=== PATIENT | female | born 1940 | race Caucasian/White ===

== ENCOUNTER → 2018-12-24 12:52 | Outpatient (CLI) | payer MEDICARE, OTHER, SELFPAY ==
[2018-12-24 13:39] LABS: Basophils % 0.4 % (0.1-2.0); Eosinophils # 0.1 K/mm3 (0.0-0.4); Eosinophils % 3.5 % (0.1-12.0); Hematocrit 37.3 % (37.0-47.0); Hemoglobin 11.9 g/dL (12.2-16.2); Lymphocytes # 0.9 K/mm3 (0.7-4.5); Lymphocytes % 22.3 % (10-50); Mean Corpuscular HGB Conc 31.9 g/dL (31.8-35.4); Mean Corpuscular Hemoglobin 34.4 pg (27.0-31.2); Mean Corpuscular Volume 107.8 fl (81-99); Mean Platelet Volume 7.3 fl (7.4-10.4); Monocytes # 0.3 K/mm3 (0.1-1.0); Monocytes % 6.4 % (1.7-9.3); Neutrophils # 2.8 K/mm3 (1.8-7.8); Neutrophils % 67.5 % (37.0-80.0); Platelet Count 157 K/mm3 (142-424); Red Blood Count 3.46 M/mm3 (4.20-5.40); Red Cell Distribution Width 15.9 % (11.5-17.5); White Blood Count 4.1 K/mm3 (4.8-10.8)
[2018-12-24 15:12] LABS: Erythrocyte Sedimentation Rate 62 mm/hr (0-30)
[2018-12-24 20:25] LABS: C-Reactive Protein 0.4 mg/L (0.0-0.9)
== END ==
PROVIDERS: Visit Provider Orthopaedic Surgery
DX: M25.552 Pain in left hip (principal)
CPT/HCPCS: 36415; 85025; 85651; 86140

== ENCOUNTER → 2019-03-25 14:24 | Outpatient (CLI) | payer MEDICARE, OTHER, SELFPAY ==
[2019-03-25 15:03] LABS: INR 5.88 (0.9-1.1); Prothrombin Time 56.2 seconds (9.4-11.8)
== END ==
PROVIDERS: Visit Provider Internal Medicine Adolescent Medicine
DX: Z51.81 Encounter for therapeutic drug level monitoring (principal); Z79.01 Long term (current) use of anticoagulants
CPT/HCPCS: 85610

== ENCOUNTER → 2019-05-13 11:17 | Outpatient (CLI) | payer MEDICARE, OTHER, SELFPAY ==
[2019-05-13 13:55] LABS: Basophils % 0.4 % (0.1-2.0); Hematocrit 40.3 % (37.0-47.0); Hemoglobin 11.6 g/dL (12.2-16.2); Lymphocytes % 22.9 % (10-50); Mean Corpuscular HGB Conc 28.9 g/dL (31.8-35.4); Mean Corpuscular Hemoglobin 31.2 pg (27.0-31.2); Mean Corpuscular Volume 107.9 fl (81-99); Mean Platelet Volume 8.1 fl (7.4-10.4); Monocytes # 0.3 K/mm3 (0.1-1.0); Monocytes % 7.3 % (1.7-9.3); Neutrophils # 2.9 K/mm3 (1.8-7.8); Neutrophils % 68.4 % (37.0-80.0); Platelet Count 237 K/mm3 (142-424); Red Blood Count 3.73 M/mm3 (4.20-5.40); Red Cell Distribution Width 18.3 % (11.5-17.5); White Blood Count 4.2 K/mm3 (4.8-10.8)
[2019-05-13 15:21] LABS: INR 1.16 (0.9-1.1)
[2019-05-13 18:25] LABS: Hemoglobin A1C 5.1 % (0.0-7.0)
== END ==
PROVIDERS: Internal Medicine Adolescent Medicine; PCP Nurse Practitioner Family; Visit Provider Nurse Practitioner Family
DX: Z51.81 Encounter for therapeutic drug level monitoring (principal); Z79.01 Long term (current) use of anticoagulants; R73.9 Hyperglycemia, unspecified
CPT/HCPCS: 36415; 83036; 85025; 85610

== ENCOUNTER → 2019-06-01 10:57 | Outpatient (CLI) | payer MEDICARE, OTHER, SELFPAY ==
[2019-06-01 14:31] LABS: Prothrombin Time 14.3 seconds (9.4-11.8)
== END ==
PROVIDERS: PCP Nurse Practitioner Family; Visit Provider Nurse Practitioner Family
DX: Z51.81 Encounter for therapeutic drug level monitoring (principal); Z79.01 Long term (current) use of anticoagulants
CPT/HCPCS: 85610

== ENCOUNTER → 2019-06-17 11:09 | Outpatient (CLI) | payer MEDICARE, OTHER, SELFPAY ==
[2019-06-17 14:14] LABS: INR 2.53 (0.9-1.1); Prothrombin Time 25.2 seconds (9.4-11.8)
== END ==
PROVIDERS: Visit Provider Internal Medicine Adolescent Medicine
DX: Z51.81 Encounter for therapeutic drug level monitoring (principal); Z79.01 Long term (current) use of anticoagulants
CPT/HCPCS: 36415; 85610

== ENCOUNTER → 2019-07-22 09:22 | Outpatient (CLI) | payer MEDICARE, OTHER, SELFPAY ==
[2019-07-22 13:58] LABS: INR 4.71 (0.9-1.1); Prothrombin Time 45.5 seconds (9.4-11.8)
== END ==
PROVIDERS: PCP Internal Medicine Adolescent Medicine; Visit Provider Internal Medicine Adolescent Medicine
DX: Z51.81 Encounter for therapeutic drug level monitoring (principal); Z79.01 Long term (current) use of anticoagulants
CPT/HCPCS: 36415; 85610

== ENCOUNTER → 2019-07-27 10:09 | Outpatient (CLI) | payer MEDICARE, OTHER, SELFPAY ==
[2019-07-27 14:38] LABS: INR 1.15 (0.9-1.1); Prothrombin Time 11.9 seconds (9.4-11.8)
== END ==
PROVIDERS: PCP Internal Medicine Adolescent Medicine; Visit Provider Nurse Practitioner Family
DX: Z51.81 Encounter for therapeutic drug level monitoring (principal); Z79.01 Long term (current) use of anticoagulants
CPT/HCPCS: 36415; 85610

== ENCOUNTER → 2019-08-17 10:34 | Outpatient (CLI) | payer MEDICARE, OTHER, SELFPAY ==
[2019-08-17 15:14] LABS: INR 5.43 (0.9-1.1); Prothrombin Time 52.1 seconds (9.4-11.8)
== END ==
PROVIDERS: PCP Internal Medicine Adolescent Medicine; Visit Provider Internal Medicine Adolescent Medicine
DX: Z51.81 Encounter for therapeutic drug level monitoring (principal); Z79.01 Long term (current) use of anticoagulants
CPT/HCPCS: 36415; 85610

== ENCOUNTER → 2019-08-19 10:33 | Outpatient (CLI) | payer MEDICARE, OTHER, SELFPAY ==
[2019-08-19 15:01] LABS: INR 2.54 (0.9-1.1); Prothrombin Time 25.3 seconds (9.4-11.8)
== END ==
PROVIDERS: Visit Provider Internal Medicine Adolescent Medicine
DX: Z51.81 Encounter for therapeutic drug level monitoring (principal); Z79.01 Long term (current) use of anticoagulants
CPT/HCPCS: 36415; 85610

== ENCOUNTER → 2019-09-02 11:26 | Outpatient (CLI) | payer MEDICARE, OTHER, SELFPAY ==
[2019-09-02 14:06] LABS: Eosinophils # 0.1 K/mm3 (0.0-0.4); Lymphocytes % 29.6 % (10-50); Monocytes # 0.1 K/mm3 (0.1-1.0)
[2019-09-02 14:15] LABS: Basophils % 1.2 % (0.1-2.0); Eosinophils % 3.8 % (0.1-12.0); Hematocrit 32.2 % (37.0-47.0); Hemoglobin 9.6 g/dL (12.2-16.2); Lymphocytes # 0.9 K/mm3 (0.7-4.5); Mean Corpuscular HGB Conc 29.7 g/dL (31.8-35.4); Mean Corpuscular Hemoglobin 31.9 pg (27.0-31.2); Mean Corpuscular Volume 107.5 fl (81-99); Mean Platelet Volume 9.8 fl (7.4-10.4); Monocytes % 4.2 % (1.7-9.3); Neutrophils # 1.8 K/mm3 (1.8-7.8); Neutrophils % 61.2 % (37.0-80.0); Platelet Count 112 K/mm3 (142-424); Red Cell Distribution Width 15.6 % (11.5-17.5); White Blood Count 2.9 K/mm3 (4.8-10.8)
[2019-09-02 14:19] LABS: Alanine Aminotransferase 14 U/L (12-78); Albumin Level 2.1 gm/dL (3.4-5.0); Albumin/Globulin Ratio 0.6 (1.1-1.8); Alkaline Phosphatase 91 U/L (46-116); Anion Gap 12.7 mEq/L (5-15); Aspartate Amino Transferase 31 U/L (15-37); Bilirubin,Total 0.6 mg/dL (0.2-1.0); Blood Urea Nitrogen 30 mg/dL (7-18); Calcium 8.1 mg/dL (8.5-10.1); Carbon Dioxide 32 mmol/L (21.0-32.0); Chloride 97 mmol/L (98-107); Estimated Glomerular Filt Rate 9 ml/min (>60); GFR (African American) 10 ML/MIN (>60); Globulin 3.7 gm/dl (1.3-3.2); Glucose 136 mg/dL (74-106); Potassium 3.7 mmoL/L (3.5-5.1); Sodium 138 mmol/L (136-145); Thyroid Stimulating Hormone 1.18 uIU/ml (0.358-3.740); Total Protein,Serum 5.8 gm/dL (6.4-8.2)
[2019-09-02 14:21] LABS: Hemoglobin A1C 5.5 % (0.0-7.0)
[2019-09-02 14:26] LABS: Creatinine,Serum 4.91 mg/dL (0.55-1.02)
== END ==
PROVIDERS: Visit Provider Nurse Practitioner Family
DX: R53.1 Weakness (principal); I10 Essential (primary) hypertension; D64.9 Anemia, unspecified; E03.9 Hypothyroidism, unspecified; E11.9 Type 2 diabetes mellitus without complications
CPT/HCPCS: 36415; 80053; 83036; 84443; 85025

== ENCOUNTER → 2019-10-07 12:57 | Outpatient (CLI) | payer MEDICARE, OTHER, SELFPAY ==
[2019-10-07 13:26] LABS: Basophils % 0.5 % (0.1-2.0); Eosinophils # 0.1 K/mm3 (0.0-0.4); Eosinophils % 2.8 % (0.1-12.0); Hematocrit 38.1 % (37.0-47.0); Hemoglobin 11.4 g/dL (12.2-16.2); Lymphocytes # 0.9 K/mm3 (0.7-4.5); Lymphocytes % 24.9 % (10-50); Mean Corpuscular Hemoglobin 32.9 pg (27.0-31.2); Mean Corpuscular Volume 109.5 fl (81-99); Mean Platelet Volume 8.8 fl (7.4-10.4); Monocytes # 0.2 K/mm3 (0.1-1.0); Monocytes % 5.5 % (1.7-9.3); Neutrophils # 2.3 K/mm3 (1.8-7.8); Neutrophils % 66.3 % (37.0-80.0); Platelet Count 73 K/mm3 (142-424); Red Blood Count 3.48 M/mm3 (4.20-5.40); Red Cell Distribution Width 18.9 % (11.5-17.5); White Blood Count 3.4 K/mm3 (4.8-10.8)
[2019-10-07 13:30] LABS: Chloride 97 mmol/L (98-107); Potassium 4.4 mmoL/L (3.5-5.1); Sodium 138 mmol/L (136-145)
[2019-10-07 13:32] LABS: Activated Partial Thrombo Time 29.7 seconds (23.6-34.0); Alanine Aminotransferase 20 U/L (12-78); Aspartate Amino Transferase 50 U/L (14-36); Blood Urea Nitrogen 33 mg/dl (7-17); Estimated Glomerular Filt Rate 13 ml/min (>60); GFR (African American) 15 ML/MIN (>60); INR 1.06 (0.9-1.1)
[2019-10-07 13:33] LABS: Albumin Level 3.2 g/dl (3.5-5.0); Alkaline Phosphatase 87 U/L (38-126); Anion Gap 10.4 mEq/L (5-15); Bilirubin,Total 0.6 mg/dl (0.2-1.3); Calcium 8.5 mg/dl (8.4-10.2); Carbon Dioxide 35 mmol/L (22.0-30.0); Globulin 3.3 g/dL (1.3-3.2); Glucose 78 mg/dl (74-100); Total Protein,Serum 6.5 g/dl (6.3-8.2)
[2019-10-07 13:49] LABS: C-Reactive Protein 17.6 mg/L (0-4)
[2019-10-07 14:01] LABS: Erythrocyte Sedimentation Rate 91 mm/hr (0-30)
[2019-10-08 10:37] LABS: Toxoplasma gondii Ab,IgG,Qn <3.0 IU/mL (0.0-7.1); Toxoplasma gondii Ab,IgM,Qn 4.3 AU/mL (0.0-7.9)
== END ==
PROVIDERS: Visit Provider Nurse Practitioner Family
DX: D69.2 Other nonthrombocytopenic purpura (principal); W55.03XA Scratched by cat, initial encounter
CPT/HCPCS: 36415; 80053; 85025; 85610; 85651; 85730; 86140; 86777

== ENCOUNTER → 2019-10-12 10:13 | Outpatient (CLI) | payer MEDICARE, OTHER, SELFPAY ==
[2019-10-12 13:30] LABS: Basophils % 0.7 % (0.1-2.0); Eosinophils # 0.1 K/mm3 (0.0-0.4); Eosinophils % 3.9 % (0.1-12.0); Hematocrit 37.8 % (37.0-47.0); Hemoglobin 11.6 g/dL (12.2-16.2); Lymphocytes # 0.7 K/mm3 (0.7-4.5); Lymphocytes % 29.4 % (10-50); Mean Corpuscular HGB Conc 30.7 g/dL (31.8-35.4); Mean Corpuscular Hemoglobin 32.9 pg (27.0-31.2); Mean Corpuscular Volume 107.1 fl (81-99); Mean Platelet Volume 8.6 fl (7.4-10.4); Monocytes # 0.1 K/mm3 (0.1-1.0); Monocytes % 4.8 % (1.7-9.3); Neutrophils # 1.4 K/mm3 (1.8-7.8); Neutrophils % 61.3 % (37.0-80.0); Platelet Count 83 K/mm3 (142-424); Red Blood Count 3.53 M/mm3 (4.20-5.40); Red Cell Distribution Width 17.8 % (11.5-17.5); White Blood Count 2.3 K/mm3 (4.8-10.8)
== END ==
PROVIDERS: Visit Provider Internal Medicine Adolescent Medicine
DX: D69.6 Thrombocytopenia, unspecified (principal)
CPT/HCPCS: 36415; 85025

== ENCOUNTER → 2019-11-08 08:55 | Outpatient (CLI) | payer MEDICARE, OTHER, SELFPAY ==
[2019-11-08 14:25] LABS: Basophils % 0.5 % (0.1-2.0); Eosinophils # 0.1 K/mm3 (0.0-0.4); Eosinophils % 4.3 % (0.1-12.0); Hematocrit 33.4 % (37.0-47.0); Lymphocytes # 0.5 K/mm3 (0.7-4.5); Lymphocytes % 32.6 % (10-50); Mean Corpuscular Hemoglobin 32.1 pg (27.0-31.2); Mean Corpuscular Volume 106.8 fl (81-99); Mean Platelet Volume 9.6 fl (7.4-10.4); Monocytes # 0.1 K/mm3 (0.1-1.0); Monocytes % 5.7 % (1.7-9.3); Neutrophils # 0.9 K/mm3 (1.8-7.8); Platelet Count 118 K/mm3 (142-424); Red Blood Count 3.13 M/mm3 (4.20-5.40); Red Cell Distribution Width 16.7 % (11.5-17.5); White Blood Count 1.6 K/mm3 (4.8-10.8)
[2019-11-08 15:51] LABS: Occult Blood,Stool Negative (Negative)
== END ==
PROVIDERS: Visit Provider Nurse Practitioner Family
DX: K92.1 Melena (principal)
CPT/HCPCS: 82272; 85025; G0328

== ENCOUNTER → 2020-04-11 09:21 | Outpatient (CLI) | payer MEDICARE, OTHER, SELFPAY ==
[2020-04-11 14:38] LABS: Basophils % 0.6 % (0.1-2.0); Eosinophils # 0.1 K/mm3 (0.0-0.4); Eosinophils % 3.4 % (0.1-12.0); Hematocrit 39.2 % (37.0-47.0); Hemoglobin 13.1 g/dL (12.2-16.2); Lymphocytes # 0.8 K/mm3 (0.7-4.5); Lymphocytes % 22.6 % (10-50); Mean Corpuscular HGB Conc 33.3 g/dL (31.8-35.4); Mean Corpuscular Hemoglobin 35.1 pg (27.0-31.2); Mean Corpuscular Volume 105.3 fl (81-99); Mean Platelet Volume 8.9 fl (7.4-10.4); Monocytes # 0.2 K/mm3 (0.1-1.0); Monocytes % 5.4 % (1.7-9.3); Neutrophils # 2.4 K/mm3 (1.8-7.8); Platelet Count 137 K/mm3 (142-424); Red Blood Count 3.72 M/mm3 (4.20-5.40); Red Cell Distribution Width 15.9 % (11.5-17.5); White Blood Count 3.6 K/mm3 (4.8-10.8)
[2020-04-11 14:44] LABS: Alanine Aminotransferase 17 U/L (12-78); Albumin Level 4.1 g/dl (3.5-5.0); Albumin/Globulin Ratio 1.6 (1.1-1.8); Alkaline Phosphatase 127 U/L (38-126); Anion Gap 16.7 mEq/L (5-15); Aspartate Amino Transferase 31 U/L (14-36); Bilirubin,Total 0.6 mg/dl (0.2-1.3); Blood Urea Nitrogen 36 mg/dl (7-17); Calcium 8.8 mg/dl (8.4-10.2); Carbon Dioxide 39 mmol/L (22.0-30.0); Chloride 92 mmol/L (98-107); Estimated Glomerular Filt Rate 10 ml/min (>60); GFR (African American) 12 ML/MIN (>60); Globulin 2.5 g/dL (1.3-3.2); Glucose 95 mg/dl (74-100); Potassium 3.7 mmoL/L (3.5-5.1); Sodium 144 mmol/L (136-145); Total Protein,Serum 6.6 g/dl (6.3-8.2)
[2020-04-11 14:48] LABS: Hemoglobin A1C 5.4 % (4.0-6.0)
[2020-04-11 14:58] LABS: 25-OH Vitamin D, Total 21.6 ng/mL (30-100)
[2020-04-11 15:15] LABS: Thyroid Stimulating Hormone 2.41 uIU/mL (0.465-4.68)
== END ==
PROVIDERS: Visit Provider Nurse Practitioner Family
DX: N18.6 End stage renal disease (principal); D64.9 Anemia, unspecified; E11.9 Type 2 diabetes mellitus without complications; E03.9 Hypothyroidism, unspecified; E55.9 Vitamin D deficiency, unspecified
CPT/HCPCS: 36415; 80053; 82306; 83036; 84443; 85025

== ENCOUNTER → 2020-04-13 09:54 | Outpatient (CLI) | payer MEDICARE, OTHER, SELFPAY ==
--- NOTE | 2020-04-13 | CA_ITS ---
APPROVED REPORT Assistant Director Of Public Works: Concetta Hensley RVT Laterality: Bilateral Study Quality: Good Indications: Bruit Risk Factors Diabetes Doppler Spectral Velocity Analysis ECA (R) 82.10/5.00 cm/s ECA (L) 101.00/6.20 cm/s dICA (R) 97.20/15.60 cm/s dICA (L) 92.70/17.80 cm/s [place] (R) 100.20/19.60 cm/s [place] (L) 69.10/11.60 cm/s pICA (R) 68.50/11.60 cm/s pICA (L) 75.70/15.30 cm/s dCCA (R) 70.70/10.70 cm/s dCCA (L) 85.90/14.00 cm/s pCCA (R) 90.10/9.70 cm/s pCCA (L) 83.40/10.80 cm/s Vert (R) 42.00/5.10 cm/s Vert (L) 52.00/9.30 cm/s ICA/CCA 1.42 ICA/CCA 1.08 Findings Study suggests less than 20% stenosis of the right internal cartoid artery unchanged from the 02/01/13 study. Study suggests less than 20% stenosis of the left internal cartoid artery unchanged from the 02/01/13 study. Antegrade flow seen bilateral vertebral arteries. Conclusion Study suggests less than 20% stenosis of the right internal cartoid artery unchanged from the 02/01/13 study. Study suggests less than 20% stenosis of the left internal cartoid artery unchanged from the 02/01/13 study. Antegrade flow seen bilateral vertebral arteries. Electronically signed by : Wilfrido Barton MD 04/13/2020 17:59:42
--- NOTE | 2020-04-13 10:40 | MM_ITS ---
PROCEDURE: MM DIG SCREENING MAMM BI W/CAD Referring Doctor: Zara Delcid Patient Age:80Y CLINICAL INDICATION: SCREENING routine screening. No hormones, no new complaints family history. Sister with breast cancer COMPARISON: MG DMSB DIGITAL MAMM-SCREEN BILATERAL from 06/19/2012 MG DMSB DIG MAMM-SCREEN ASHLEY from 11/16/2013 MG DMSB DIG MAMM-SCREEN ASHLEY from 02/13/2015 MG DMSB DIG MAMM-SCREEN ASHLEY W/CAD from 04/01/2017 CR,MG BONE3 BONE DENSITOMETRY(HIP:LT SPINE from 04/01/2017 TECHNIQUE: Standard CC and MLO images were obtained. R2 CAD reviewed. Bilateral digital breast tomosynthesis included. Additional nipple profile MLO views bilateral FINDINGS: Low-density breast with diffuse fatty replacement and scant residual fibroglandular elements. Mammography is most optimal screening modality in this low-density character breast . No suspicious calcifications-the the calcifications highlighted by CAD are all benign vascular calcifications and not of concern. Right breast: Stable. Unremarkable. Follow-up 1 year: Left breast: Stable minor focal area of asymmetric fibroglandular tissue upper outer quadrant. Follow-up 1 year IMPRESSION: . Stable bilateral mammogram. No areas of concern. Low-density breast generalized fatty replacement Bilateral follow-up 1 year BI-RAD Category: 1 Negative FOLLOW-UP: 1YR 1 Year Follow-up (A letter has been sent to the patient regarding results of the study.) Dictated by: Yusuf Rangel MD 04/17/2020 11:19 Yusuf Rangel MD in [place] 04/17/2020 11:19
--- NOTE | 2020-04-13 11:26 | XR_ITS ---
PROCEDURE: XR FOOT WT BEARING RT 3V CLINICAL INDICATION: pain COMPARISON: No exams were available for comparison FINDINGS: No fracture or dislocation. No lytic or blastic change. There is normal mineralization. The joint spaces are well-preserved. No significant degenerative/arthritic changes. No erosive changes evident. Other findings:None. IMPRESSION: No acute findings. Dictated by: Wilfrido Barton MD 04/13/2020 13:16 Wilfrido Barton MD in [place] 04/13/2020 13:16
--- NOTE | 2020-04-13 11:26 | XR_ITS ---
PROCEDURE: XR FOOT WT BEARING LT 3V CLINICAL INDICATION: pain COMPARISON: No exams were available for comparison FINDINGS: No fracture or dislocation. No lytic or blastic change. There is normal mineralization. The joint spaces are well-preserved. No significant degenerative/arthritic changes. No erosive changes evident. Other findings:None. IMPRESSION: No acute findings. Dictated by: Wilfrido Barton MD 04/13/2020 13:16 Wilfrido Barton MD in [place] 04/13/2020 13:16
== END ==
PROVIDERS: PCP Nurse Practitioner Family; Visit Provider Nurse Practitioner Family
DX: Z12.31 Encounter for screening mammogram for malignant neoplasm of breast (principal); R09.89 Other specified symptoms and signs involving the circulatory and respiratory systems; E11.9 Type 2 diabetes mellitus without complications; E03.9 Hypothyroidism, unspecified; E55.9 Vitamin D deficiency, unspecified; D64.9 Anemia, unspecified; N18.6 End stage renal disease; M79.672 Pain in left foot; M79.671 Pain in right foot
CPT/HCPCS: 73630; 77063; 77067; 93880

== ENCOUNTER → 2021-06-05 14:16 | Outpatient (POV) | payer MEDICARE, OTHER, SELFPAY | PROVIDERS: Visit Provider Dermatology | DX: Z00.00 Encounter for general adult medical examination without abnormal findings (principal) ==

== ENCOUNTER → 2022-02-26 14:39 | Outpatient (POV) | payer MEDICARE, OTHER, SELFPAY | PROVIDERS: Visit Provider Dermatology | DX: Z00.00 Encounter for general adult medical examination without abnormal findings (principal) ==

== ENCOUNTER → 2022-03-12 14:07 | Outpatient (POV) | payer MEDICARE, OTHER, SELFPAY | PROVIDERS: Visit Provider Dermatology | DX: Z00.00 Encounter for general adult medical examination without abnormal findings (principal) ==

== ENCOUNTER 2022-05-10 08:30 | Emergency (ER) | payer MEDICARE, OTHER, SELFPAY ==
[2022-05-10] VITALS (20 sets, daily range): BP systolic 102–151; BP diastolic 26–64; PULSE 64–96; RESP 16–20; TEMP 36.7–36.9; O2SAT 91–100; BMI 22.9
--- NOTE | 2022-05-10 09:09 | CT_ITS ---
FINAL REPORT TECHNIQUE: Axial images through the abdomen and pelvis were performed without contrast. This study was performed with techniques to keep radiation doses as low as reasonably achievable, (ALARA). Individualized dose reduction techniques using automated exposure control or adjustment of mA and/or kV according to the patient's size were employed. CLINICAL HISTORY: abd. pain, vomiting FINDINGS: Abdomen: The lung bases are clear. The liver parenchyma is homogeneous. There is evidence of cholecystectomy. The common duct is markedly dilated at 28 mm. A large duodenal diverticulum is seen on image 50 of series 3. There are calcified granulomas in the spleen. The pancreas, adrenals and kidneys are unremarkable. There are multiple fluid filled abnormally dilated loops of proximal small bowel. Dilated bowel measures up to 4.3 cm. A left abdomen colostomy is present. The colon is relatively decompressed. Pelvis: The urinary bladder is unremarkable. The appendix is not visualized. There is no pelvic mass or inflammation. Bilateral hip prostheses cause streak artifact. IMPRESSION: Abnormally dilated loops of small bowel consistent with small-bowel obstruction. Dilated common duct up to 28 mm. Reviewed, Interpreted and Dictated by Aiden Lira MD Transcribed by Eric Yin Authenticated and [facility]
[2022-05-10 09:16] LABS: Basophils # 0.1 K/mm3 (0-0.2); Basophils % 0.6 % (0.1-2.0); Eosinophils # 0.1 K/mm3 (0.0-0.4); Eosinophils % 0.8 % (0.1-12.0); Hematocrit 43.8 % (37.0-47.0); Hemoglobin 13.7 g/dL (12.2-16.2); Lymphocytes # 0.9 K/mm3 (0.7-4.5); Lymphocytes % 10.9 % (10-50); Mean Corpuscular HGB Conc 31.2 g/dL (31.8-35.4); Mean Corpuscular Hemoglobin 34.1 pg (27.0-31.2); Mean Corpuscular Volume 109.1 fl (81-99); Mean Platelet Volume 8.1 fl (7.4-10.4); Monocytes # 0.4 K/mm3 (0.1-1.0); Monocytes % 4.1 % (1.7-9.3); Neutrophils # 7.2 K/mm3 (1.8-7.8); Neutrophils % 83.7 % (37.0-80.0); Platelet Count 198 K/mm3 (142-424); Red Blood Count 4.02 M/mm3 (4.20-5.40); Red Cell Distribution Width 15.2 % (11.5-17.5); White Blood Count 8.6 K/mm3 (4.8-10.8)
--- NOTE | 2022-05-10 09:16 | HMH.EDNVD ---
Discharge Plan Disposition Patient Disposition: Xfer Intermediate Care Fac Condition: Fair Chief Complaint: Nausea/Vomiting/Diarrhea Prescriptions Prescriptions: No Action timolol maleate 0.5 % drops OPHTHALMIC latanoprost 0.005 % drops OPHTHALMIC ascorbic acid (vitamin C) 500 mg capsule PO Nephro-Antonella 0.8 mg tablet 1 tab PO DAILY calcium acetate 667 mg tablet 1,334 mg PO TID midodrine 10 mg tablet 10 mg PO BID Rx Instructions: One tab bid on dialysis days acetaminophen 325 mg capsule 325 mg PO QID PRN (Reason: pain) pregabalin 75 mg capsule 75 mg PO DAILY Qty: 30 3RF pregabalin 25 mg capsule 25 mg PO DAILY Qty: 90 3RF Rx Instructions: One tab daily on MWF (dialysis days) trazodone 50 mg tablet 50 mg PO DAILY Qty: 30 3RF pantoprazole 40 mg tablet,delayed release (DR/EC) 40 mg PO DAILY Qty: 30 3RF hydrocodone-acetaminophen 5-325 mg tablet 1 tab PO QHS PRN (Reason: neuropathy pain) Qty: 30 0RF cephalexin 500 mg capsule 500 mg PO BID Qty: 20 0RF Rx Instructions: take first daily dose AFTER DIALYSIS on Friday, Friday, and Friday levothyroxine [Synthroid] 88 mcg tablet 88 mcg PO DAILY Qty: 30 3RF Referrals Follow up/Referrals: Saw Roa MD [Primary Care Provider] - See instructions Clinical Impressions Clinical Impression: End-stage renal disease on hemodialysis, Complete small bowel obstruction Discharge ED Provider: Jacob Ramos Nausea/Vomiting/Diarrhea HPI General Chief complaint: Nausea/Vomiting/Diarrhea Stated complaint: Vomitting, stomach pain Time Seen by Provider: 05/10/22 09:16 Mode of Arrival: Ambulatory Source of Information: Patient Limitations: No Limitations Description of Symptoms (Recalled from ER Triage Doc. by RN): c/o v/d with sharp abdominal pain that started yesterday. History of Present Illness HPI Narrative: This is a 82-year-old female presenting to the emergency department with some nausea vomiting and abdominal discomfort. The patient has a history of a colostomy. She states that she woke up this morning was feeling very nauseous. She has had some dry heaves and yellow vomiting. Patient complaining of some mild pain around her colostomy site. States that her colostomy has been draining fine without any complications. She denies any headache or change in vision. No focal weakness. No fevers or chills. No chest pain or shortness of breath. Related Data Home Medications Medication Instructions Recorded Confirmed ascorbic acid (vitamin C) 500 mg mg PO 10/14/19 03/05/22 capsule vitamin B complex-vitamin C-folic 1 tab PO DAILY 10/14/19 03/05/22 acid 0.8 mg tablet (Nephro-Antonella) calcium acetate 667 mg tablet 1,334 mg PO TID 04/18/20 03/05/22 latanoprost 0.005 % eye drops ophthalmic (eye) 04/18/20 03/05/22 timolol maleate 0.5 % eye drops ophthalmic (eye) 04/18/20 03/05/22 acetaminophen 325 mg capsule 325 mg PO QID PRN pain 02/26/22 03/05/22 midodrine 10 mg tablet 10 mg PO BID 02/26/22 03/05/22 Previous Rx's Medication Instructions Recorded cephalexin 500 mg capsule 500 mg PO BID #20 caps 03/05/22 hydrocodone 5 mg-acetaminophen 325 1 tab PO QHS PRN neuropathy pain 04/01/22 mg tablet #30 tabs pantoprazole 40 mg tablet,delayed 40 mg PO DAILY #30 tabs 04/01/22 release pregabalin 25 mg capsule 25 mg PO DAILY #90 caps 04/01/22 pregabalin 75 mg capsule 75 mg PO DAILY #30 caps 04/01/22 trazodone 50 mg tablet 50 mg PO DAILY pain #30 tabs 04/01/22 levothyroxine 88 mcg tablet 88 mcg PO DAILY #30 tabs 04/26/22 (Synthroid) Allergies Allergy/AdvReac Type Severity Reaction Status Date / Time tramadol [TRAMADOL] Allergy Mild Verified 03/05/22 11:17 OTHER Allergy Unknown Uncoded 03/05/22 11:17 [facility] Medical History (Updated 05/10/22 @ 18:30 by Jacob Ramos MD) Chronic kidney disease Diabetes mellitus, type 2 Dialysis patient
[2022-05-10 09:19] LABS: Chloride 92 mmol/L (98-107); Sodium 145 mmol/L (136-145)
--- NOTE | 2022-05-10 09:19 | PC.NURSE ---
Pt to RAD for CT SCAN via WC
[2022-05-10 09:22] LABS: Alanine Aminotransferase 16 U/L (12-78); Alkaline Phosphatase 169 U/L (38-126); Amylase 144 U/L (30-110); Aspartate Amino Transferase 34 U/L (14-36); Bilirubin,Total 0.4 mg/dl (0.2-1.3); Blood Urea Nitrogen 33 mg/dl (7-17); Calcium 8.6 mg/dl (8.4-10.2); Carbon Dioxide 35 mmol/L (22.0-30.0); Creatinine Clearance Estimated 7 mL/min (50-200); Estimated Glomerular Filt Rate 7 ml/min (>60); GFR (African American) 9 ML/MIN (>60); Glucose 124 mg/dl (74-100); Lipase 45 U/L (23-300)
[2022-05-10 09:23] LABS: Albumin Level 4.2 g/dl (3.5-5.0); Albumin/Globulin Ratio 1.6 (1.1-1.8); Globulin 2.7 g/dL (1.3-3.2); Total Protein,Serum 6.9 g/dl (6.3-8.2)
--- NOTE | 2022-05-10 09:26 | PC.NURSE ---
Pt BAck to room via WC from RAD
--- NOTE | 2022-05-10 09:28 | PC.NURSE ---
pt given blanket per radio division officer
--- NOTE | 2022-05-10 09:28 | PC.NURSE ---
sorter/assay tech gave pt warm blanket
--- NOTE | 2022-05-10 11:18 | PC.NURSE ---
pt and so updated on plan of care
--- NOTE | 2022-05-10 11:20 | PC.NURSE ---
LUZMARIA RODRIGUEZ ON PHONE WITH [facility]
--- NOTE | 2022-05-10 11:20 | PC.NURSE ---
Dr Ramos speaking with Dr Toro
--- NOTE | 2022-05-10 11:38 | PC.NURSE ---
[facility] called for pt transfer, they are to call back.
--- NOTE | 2022-05-10 11:51 | PC.NURSE ---
rounded on pt, updated on poc, family at [facility]
--- NOTE | 2022-05-10 11:54 | PC.NURSE ---
Dr Ramos speaking with Dr Peace at [facility]
[2022-05-10 12:04] LABS: Coronavirus 19, PCR Not Detected (NotDetected); Influenza A, PCR Not Detected (NotDetected); Influenza B, PCR Not Detected (NotDetected)
--- NOTE | 2022-05-10 12:05 | PC.NURSE ---
[facility] called for transfer, waiting for hospitalist Dr Ramirez to call back.
--- NOTE | 2022-05-10 12:17 | PC.NURSE ---
Dr Ramirez returned call, they are working on a bed for pt.
--- NOTE | 2022-05-10 12:24 | PC.NURSE ---
RN ATtempting to place NG tube
--- NOTE | 2022-05-10 12:28 | XR_ITS ---
FINAL REPORT CLINICAL HISTORY: ng placement COMPARISON: May of 2017 FINDINGS: An NG tube terminates in the stomach. The heart size is normal. The mediastinum is normal. There is no focal infiltrate or edema. There are no pleural effusions. There is no pneumothorax. There is no osseous abnormality. IMPRESSION: No acute cardiopulmonary process NG tube terminates in the stomach. Reviewed, Interpreted and Dictated by Aiden Lira MD Transcribed by Eric Yin Authenticated and [facility]
--- NOTE | 2022-05-10 12:29 | PC.NURSE ---
Dr Ramos on with Dr Small at [facility]
--- NOTE | 2022-05-10 12:31 | PC.NURSE ---
called radiology to get confirmation of ng tube placement
--- NOTE | 2022-05-10 12:31 | PC.NURSE ---
spoke with [facility]
--- NOTE | 2022-05-10 12:34 | PC.NURSE ---
RAD @ [facility] for after ng placement flim
--- NOTE | 2022-05-10 12:35 | PC.NURSE ---
Facesheet faxed to [facility]
--- NOTE | 2022-05-10 13:12 | PC.NURSE ---
Mishel with customer relations checked on pt she was resting.
--- NOTE | 2022-05-10 14:06 | PC.NURSE ---
Dr Ibarra here and spoke with the pt
--- NOTE | 2022-05-10 14:25 | PC.NURSE ---
pt updated on plan of care
--- NOTE | 2022-05-10 18:44 | PC.NURSE ---
[facility] called pt is still on waiting list
--- NOTE | 2022-05-10 20:20 | PC.NURSE ---
[facility] call patient is going to [facility], room number will be given at registration. Report to be called to [phone]. message given to VINCENT Naranjo
--- NOTE | 2022-05-10 20:33 | PC.NURSE ---
PT AWARE OF PLAN TO TRANSFER TO [facility] AND AWARE THAT BED HAS BEEN ASSIGNED. [facility] AND RECEIVE BED ASSIGNMENT UPON ARRIVAL.
--- NOTE | 2022-05-10 20:50 | PC.NURSE ---
[facility] notified of need for transfer
--- NOTE | 2022-05-10 21:07 | PC.NURSE ---
[facility] arrived for pt transport to [place]
== END 2022-05-10 21:20 ==
PROVIDERS: Emergency Provider Emergency Medicine; PCP Family Medicine
DX: N18.6 End stage renal disease (principal); K56.691 Other complete intestinal obstruction; Z99.2 Dependence on renal dialysis; E11.9 Type 2 diabetes mellitus without complications; E03.9 Hypothyroidism, unspecified
CPT/HCPCS: 71045; 74176; 80053; 82150; 83690; 85025; 96365; 96375; 96376; 99285; C9803; J2405; U0003; U0005

== ENCOUNTER → 2022-06-18 06:01 | Outpatient (CLI) | payer MEDICARE, OTHER, SELFPAY | PROVIDERS: PCP Family Medicine; Visit Provider Family Medicine | DX: R05.9 Cough, unspecified (principal); U07.1 COVID-19 | CPT/HCPCS: C9803; U0003; U0005 ==

== ENCOUNTER → 2022-11-12 14:27 | Outpatient (CLI) | payer MEDICARE, OTHER, SELFPAY ==
--- NOTE | 2022-11-12 14:35 | XR_ITS ---
FINAL REPORT CLINICAL HISTORY: ulcer COMPARISON: March 2020 FINDINGS: 3 views of the right foot were obtained. There are fractures of the distal 2nd and 3rd metatarsals that appears subacute but are new from the prior exam. There is no dislocation. The soft tissues are unremarkable. IMPRESSION: Subacute appearing fractures of the distal 2nd and 3rd metatarsals are new as compared to the prior exam. Reviewed, Interpreted and Dictated by Martha Calderon MD Transcribed by Eric Yni Authenticated and [facility]
--- NOTE | 2022-11-12 14:35 | XR_ITS ---
FINAL REPORT CLINICAL HISTORY: ulcer COMPARISON: March 2020 FINDINGS: 3 views of the right foot were obtained. The bones are osteopenic. There is no acute fracture or dislocation. The joint spaces are intact. The soft tissues are unremarkable. IMPRESSION: No acute osseous abnormality. Reviewed, Interpreted and Dictated by Martha Calderon MD Transcribed by Eric Yin Authenticated and [facility]
== END ==
PROVIDERS: PCP Family Medicine; Visit Provider Nurse Practitioner Family
DX: E11.621 Type 2 diabetes mellitus with foot ulcer (principal); S91.301A Unspecified open wound, right foot, initial encounter; S91.302A Unspecified open wound, left foot, initial encounter; B96.89 Other specified bacterial agents as the cause of diseases classified elsewhere
CPT/HCPCS: 73630; 87070; 87077; 87205

== ENCOUNTER → 2022-11-19 14:33 | Outpatient (CLI) | payer MEDICARE, OTHER, SELFPAY ==
--- NOTE | 2022-11-19 14:35 | US_ITS ---
FINAL REPORT CLINICAL HISTORY: decreased sensation, DM, Left great toe injury FINDINGS: ANKLE-BRACHIAL PRESSURE INDICES Pressure indices are as follows: RIGHT LOWER EXTREMITY: Ankle-brachial pressure index: 1.1 Comments: Normal LEFT LOWER EXTREMITY: Ankle-brachial pressure index: 1.0 Comments: Normal CONCLUSION: No evidence of significant obstructive peripheral vascular disease of the lower extremities Reviewed, Interpreted and Dictated by Aiden Lira MD Transcribed by Zenia Watson Authenticated and [facility]
== END ==
PROVIDERS: PCP Family Medicine; Visit Provider Nurse Practitioner Family
DX: G57.90 Unspecified mononeuropathy of unspecified lower limb (principal); R09.89 Other specified symptoms and signs involving the circulatory and respiratory systems; R60.0 Localized edema
CPT/HCPCS: 93923

== ENCOUNTER → 2022-12-17 09:46 | Outpatient (CLI) | payer MEDICARE, OTHER, SELFPAY ==
--- NOTE | 2022-12-17 09:46 | MM_ITS ---
PROCEDURE INFORMATION: Exam: MG Bilateral Screening 3D Mammography Exam date and time: 12/17/2022 9:45 AM Age: 82 years old Clinical indication: Screening examination TECHNIQUE: Imaging protocol: Bilateral Screening tomosynthesis and 2D mammography including computer-aided detection (CAD) when performed. COMPARISON: 1. MG MM DIG SCREENING MAMM BI W/CAD 04/13/2020 10:41 AM 2. MG DMSB DIG MAMM-SCREEN ASHLEY W/CAD 04/01/2017 3:36 PM FINDINGS: MAMMOGRAPHY: Breast composition: There are scattered areas of fibroglandular density. Mass: None. Architectural distortion: None. Calcifications: No suspicious calcifications. Asymmetric density: None. Skin thickening: None. Axillary adenopathy: None. IMPRESSION: No mammographic evidence of malignancy. Annual screening is recommended unless otherwise clinically indicated. ASSESSMENT: BI-RADS Category 1: Negative
--- NOTE | 2022-12-17 11:42 | XR_ITS ---
FINAL REPORT TECHNIQUE: Chest PA & Lateral CLINICAL HISTORY: Acute cough FINDINGS: 2 views of the chest were performed. The heart size is normal. The mediastinum is within normal limits. There is no acute cardiopulmonary process. There are no pleural effusions. There is no pneumothorax. The bony thorax appears intact. IMPRESSION: No acute cardiopulmonary process. Reviewed, Interpreted and Dictated by Aiden Lira MD Transcribed by Sandra Mtz Authenticated and . [facility]
== END ==
PROVIDERS: PCP Family Medicine; Visit Provider Family Medicine
DX: Z12.31 Encounter for screening mammogram for malignant neoplasm of breast (principal); E13.621 Other specified diabetes mellitus with foot ulcer; L97.529 Non-pressure chronic ulcer of other part of left foot with unspecified severity; N18.6 End stage renal disease; N18.9 Chronic kidney disease, unspecified; R01.1 Cardiac murmur, unspecified; R05.9 Cough, unspecified; R94.31 Abnormal electrocardiogram [ECG] [EKG]
CPT/HCPCS: 71046; 77063; 77067

== ENCOUNTER → 2023-02-06 10:47 | Outpatient (CLI) | payer MEDICARE, OTHER, SELFPAY | PROVIDERS: PCP Family Medicine; Visit Provider Nurse Practitioner | DX: E13.621 Other specified diabetes mellitus with foot ulcer (principal); L97.529 Non-pressure chronic ulcer of other part of left foot with unspecified severity; N18.6 End stage renal disease; N18.9 Chronic kidney disease, unspecified; R01.1 Cardiac murmur, unspecified; R05.9 Cough, unspecified; R94.31 Abnormal electrocardiogram [ECG] [EKG] | CPT/HCPCS: 93306 ==

== ENCOUNTER → 2023-07-03 14:57 | Outpatient (CLI) | payer MEDICARE, OTHER, SELFPAY ==
--- NOTE | 2023-07-03 15:00 | XR_ITS ---
FINAL REPORT CLINICAL HISTORY: Right great toe/ R/O Osteo COMPARISON: 04/13/2020 FINDINGS: RIGHT FOOT 3 views of the right foot were obtained. There is no acute fracture or dislocation. Mild osteopenia is present. No evidence of erosions or periosteal reaction are noted in the great toe. Visualized joint spaces are normally aligned. Soft tissues are unremarkable. IMPRESSION: Mild osteopenia, no acute bony abnormality. Reviewed, Interpreted and Dictated by Aiden Lira MD Transcribed by Susan Saeed Authenticated and [facility]
== END ==
PROVIDERS: PCP Family Medicine; Visit Provider Nurse Practitioner Family
DX: S91.109A Unspecified open wound of unspecified toe(s) without damage to nail, initial encounter (principal)
CPT/HCPCS: 73630

== ENCOUNTER 2023-09-27 11:17 | Emergency (ER) | payer MEDICARE, OTHER, SELFPAY ==
[2023-09-27 12:10] VITALS: BP 129/48; PULSE 82; RESP 22; TEMP 37.2; O2SAT 91; BMI 23.8
--- NOTE | 2023-09-27 12:12 | ED_ITS ---
Discharge Plan Disposition Patient Disposition: Home, Self-Care Condition: Good Prescriptions Prescriptions: New prednisone 10 mg tablet 10 mg PO DIRECTED 9 Days Qty: 21 0RF Rx Instructions: Take 4 tablets daily for 3 days, then take 2 tablets daily for 3 days, then take 1 tablet daily for 3 days, then stop. azithromycin [Zithromax] 250 mg tablet 250 mg PO UD DOSE PK Qty: 6 0RF Rx Instructions: Take two (2) tablets today, then one (1) tablet days #2 thru #5 guaifenesin [Mucinex] 600 mg tablet extended release 12hr 600 - 1,200 mg PO BIDP PRN (Reason: Congestion) Qty: 30 0RF No Action latanoprost 0.005 % drops OPHTHALMIC timolol maleate 0.25 % drops 1 drp Eye-Both calcitriol 0.25 mcg capsule 0.25 mcg PO DAILY ascorbic acid (vitamin C) 500 mg capsule PO calcium acetate 667 mg tablet 1,334 mg PO TID acetaminophen 325 mg capsule 325 mg PO QID PRN (Reason: pain) midodrine 10 mg tablet 10 mg PO DAILY (DME) True Metrix Glucose Test Strip Strip See Rx Instructions .ROUTE .MEDSUPPLY Qty: 10 Rx Instructions: As directed Marie-Antonella Rx 1-60-300 mg-mg-mcg tablet 1 tab PO DAILY aspirin 81 mg tablet,delayed release (DR/EC) 81 mg PO DAILY PRN amoxicillin-pot clavulanate [Augmentin] 500-125 mg tablet 1 tab PO BID Qty: 14 0RF citalopram [Celexa] 20 mg tablet 20 mg PO DAILY Qty: 30 3RF pantoprazole 40 mg tablet,delayed release (DR/EC) See Rx Instructions .ROUTE .COMPLEX Qty: 30 2RF Dose Instruction: TAKE 1 TABLET BY MOUTH DAILY Rx Instructions: TAKE 1 TABLET BY MOUTH DAILY hydrocodone-acetaminophen 5-325 mg tablet 1 - 2 tab PO HS Qty: 60 0RF levothyroxine [Synthroid] 88 mcg tablet 88 mcg PO DAILY Qty: 30 3RF pregabalin 75 mg capsule 75 mg PO DAILY Qty: 30 3RF pregabalin 25 mg capsule 25 mg PO DAILY Qty: 90 3RF Rx Instructions: One tab daily on MWF (dialysis days) Referrals Follow up/Referrals: Saw Roa MD [Primary Care Provider] - See instructions Activity Restrictions/Add. Instructions Additional Instructions/Restrictions: Take tylenol for pain or fever. Take the medications as directed. Follow up with your regular doctor. Follow up with your kidney doctor. GO TO THE ER FOR ANY WORSENING SYMPTOMS Don't start the oral steroids (prednisone) until tomorrow, since you had the shot here today Clinical Impressions Clinical Impression: COPD exacerbation, ESRD (end stage renal disease) Instructions Patient Instructions: Chronic Obstructive Pulmonary Disease, DI for Chronic Obstructive Pulmonary Disease, Ceftriaxone Injection, Methylprednisolone Injection Discharge ED Provider: John [place] [facility] [place] General Stated complaint: cough soa congestion Time Seen by Provider: 09/27/23 12:12 History of Present Illness Provider Complaint: She states that for the past 10 days approx, she has had worsening chest congestion, sinus congestion, productive cough with greenish sputum and she has felt bad. She has a history of copd. Related Data Home Medications Medication Instructions Recorded Confirmed ascorbic acid (vitamin C) 500 mg mg PO 10/14/19 07/31/23 capsule calcium acetate 667 mg tablet 1,334 mg PO TID 04/18/20 07/31/23 latanoprost 0.005 % eye drops ophthalmic (eye) 04/18/20 07/31/23 acetaminophen 325 mg capsule 325 mg PO QID PRN pain 02/26/22 07/31/23 blood sugar diagnostic (True #10 ea 05/28/22 07/31/23 Metrix Glucose Test Strip) midodrine 10 mg tablet 10 mg PO DAILY 08/27/22 07/31/23 timolol maleate 0.25 % eye drops 1 drp Eye-Both 11/28/22 07/31/23 vitamin B comp no.3-folic acid 1 1 tab PO DAILY 03/13/23 07/31/23 mg-vit C 60 mg-biotin 300 mcg tablet (Marie-Antonella Rx) calcitriol 0.25 mcg capsule 0.25 mcg PO DAILY 05/08/23 07/31/23 aspirin 81 mg tablet,delayed 81 mg PO DAILY PRN 07/01/23 07/31/23 release Previous Rx's Medication Instructions Recorded amoxicillin 500 mg-potassium 1 tab PO BID #14 tabs 07/07/23 clavulanate 125 mg tablet (Augmentin) citalopram 20 mg tablet (Celexa) 20 mg PO DAILY #30 tabs 07/17/23 pantoprazole 40 mg tablet,delayed See Rx Instructions .Route 08/06/23 release .COMPLEX #30 tabs hydrocodone 5 mg-acetaminophen 325 1 - 2 tab PO HS pain #60 tabs 09/08/23 mg tablet levothyroxine 88 mcg tablet 88 mcg PO DAILY #30 tabs 09/08/23 (Synthroid) pregabalin 25 mg capsule 25 mg PO DAILY #90 caps 09/08/23 pregabalin 75 mg capsule 75 mg PO DAILY #30 caps 09/08/23 azithromycin 250 mg tablet 250 mg PO UD DOSE PK #6 tabs 09/27/23 (Zithromax) guaifenesin 600 mg tablet, 600 - 1,200 mg PO BIDP PRN 09/27/23 extended release 12 hr (Mucinex) Congestion #30 tabs prednisone 10 mg tablet 10 mg PO DIRECTED 9 days #21 09/27/23 tabs Allergies Allergy/AdvReac Type Severity Reaction Status Date / Time tramadol [TRAMADOL] Allergy Mild Verified 07/31/23 11:33 OTHER Allergy Unknown Uncoded 07/01/23 08:28 [facility] Disclaimer: The information contained in this section may have been updated after the patient was seen, as this information can be updated by other users. Medical History Chronic kidney disease Complete small bowel obstruction Diabetes mellitus, type 2 Diabetic foot ulcer Dialysis patient End-stage renal disease on hemodialysis Heart murmur Hemodialysis patient Hypothyroid Vitamin D deficiency Surgical History History of cholecystectomy History of hip replacement History of hysterectomy Family History Mother Cancer Coronary artery disease Heart attack Diabetes Father Cancer Sister Cancer Social History Smoking Status: Never smoker alcohol intake: never substance use type: denies use current occupational status: retired Travel in the last 8 weeks: None household members: none ROS Obtained: Yes All systems reviewed & no additional complaints except as documented Constitutional Constitutional: Reports poor appetite Eyes Eyes: Reports system reviewed and no additional complaints, except as documented ENT Ears, Nose, Mouth, and Throat: Reports as per HPI Cardiovascular Cardiovascular: Reports system reviewed and no additional complaints, except as documented and Denies chest pain Respiratory Respiratory: Denies shortness of breath, Reports chest congestion, Reports cough, Denies stridor and Denies wheezing Gastrointestinal Gastrointestingal: Reports system reviewed and no additional complaints, except as documented; Denies abdominal pain, diarrhea or vomiting Musculoskeletal Musculoskeletal: Reports system reviewed and no additional complaints, except as documented and Denies arthralgias Integumentary/Breasts Skin/Breast: Reports system reviewed and no additional complaints, except as documented and Denies rash Neurologic Neurologic: Denies paresthesias Allergic/Immunologic Allergic/Immunologic: Denies wheezing Physical Exam General General appearance: alert and in no apparent distress Eye Eye exam: Present normal appearance, PERRL and EOMI ENT ENT exam: Present mucous membranes moist and normal external ear exam Expanded ENT Exam External ear exam: Present normal external inspection TM/Canal exam: Bilateral TM: erythema and bulging Nose exam: Absent sinus tenderness Nasal speculum exam: Bilateral: normal Mouth exam: Present normal external inspection; Absent drooling Teeth exam: Present normal inspection Throat exam: Present tonsillar erythema and tonsillomegaly Neck Neck exam: Present normal inspection, full ROM and trachea midline; Absent tenderness, lymphadenopathy or thyromegaly Chest Chest inspection: Present normal inspection and symmetric chest wall rise; Absent tenderness or rash Respiratory Respiratory exam: Present normal lung sounds bilaterally; Absent respiratory distress, wheezes, stridor or accessory muscle use Cardiovascular Cardiovascular exam: Present regular rate, normal rhythm and normal heart sounds Abdominal Exam Abdominal exam: Present soft; Absent distention, tenderness, guarding, rebound or rigidity Extremities Exam Extremities exam: Present normal inspection, full ROM and normal capillary refill; Absent tenderness or calf tenderness Back Exam Back exam: Present normal inspection and full ROM; Absent tenderness Neurological Exam Neurological exam: Present alert and oriented X3 Psychiatric Psychiatric exam: Present normal affect and normal mood Skin Skin exam: Present warm, dry, intact and normal color Lymphatic Lymphatic Findings: no adenopathy Medical Decision Making Medical Records Medical records reviewed: No I reviewed the patient's medical records. Shakir Inquiry Pt receiving controlled substance: No Lab Data Lab results reviewed: Yes I reviewed the patient's lab results. Radiology Data #1: Image(s): Chest Image Reviewed: Yes I reviewed the patient's radiology image and Yes I have reviewed radiologist's interpretation Preliminary Findings: Normal/NAD and No Infiltrates Seen FINAL REPORT TECHNIQUE: Chest PA & Lateral CLINICAL HISTORY: Acute cough FINDINGS: 2 views of the chest were performed. The heart size is normal. The mediastinum is within normal limits. There is no acute cardiopulmonary process. There are no pleural effusions. There is no pneumothorax. The bony thorax appears intact. IMPRESSION: No acute cardiopulmonary process. Reviewed, Interpreted and Dictated by Aiden Lira MD Transcribed by Sandra Mtz Authenticated and [facility]
--- NOTE | 2023-09-27 12:26 | XR_ITS ---
PROCEDURE INFORMATION: Exam: XR Chest Exam date and time: 09/27/2023 12:30 PM Age: 83 years old Clinical indication: Cough and shortness of breath; Additional info: Cough, SOA TECHNIQUE: Imaging protocol: Radiologic exam of the chest. Views: 2 views. COMPARISON: CR XR CHEST 2V 12/17/2022 11:44 AM FINDINGS: Lungs: Mild bilateral regions of bronchiectasis. Regions of peribronchial thickening most pronounced in the right lower lobe. Pleural spaces: Unremarkable. No pleural effusion. No pneumothorax. Delete Heart/Mediastinum: Unremarkable. No cardiomegaly. Bones/joints: Unremarkable. IMPRESSION: Findings compatible with bronchitis right lower lobe.
[2023-09-27 12:30] LABS: Coronavirus 19, PCR Not Detected (NotDetected); Influenza A, PCR Not Detected (NotDetected); Influenza B, PCR Not Detected (NotDetected)
[2023-09-27] MEDS: METHYLPREDNISOLONE SOD SUCC 125MG VIAL 62.5 MG IM (13:40)
[2023-09-27] MEDS: LIDOCAINE 1% 5ML PF VIAL IM (13:40)
[2023-09-27] MEDS: cefTRIAXone 1GM VIAL 1 GM IM (13:40)
[2023-09-27 13:51] VITALS: BP 129/48; PULSE 82; RESP 22; TEMP 37.2; O2SAT 91
[2023-09-27 14:03] LABS: Adenovirus,PCR Not Detected (NotDetected); Coronavirus 19, PCR Not Detected (NotDetected); Coronavirus 229E Not Detected (NotDetected); Coronavirus NL63 Not Detected (NotDetected); Coronavirus OC43 Not Detected (NotDetected); Coronovirus HKU1,PCR Not Detected (NotDetected); Human Metapneumovirus Not Detected (NotDetected); Influenza A, PCR Not Detected (NotDetected); Influenza AH1, 2009 Not Detected (NotDetected); Influenza AH1, PCR Not Detected (NotDetected); Influenza AH3,PCR Not Detected (NotDetected); Influenza B, PCR Not Detected (NotDetected); Parainfluenza 1, PCR Not Detected (NotDetected); Parainfluenza 2, PCR Not Detected (NotDetected); Parainfluenza 3, PCR Not Detected (NotDetected); Parainfluenza 4, PCR Not Detected (NotDetected); Rhinovirus/Enterovirus Not Detected (NotDetected)
[2023-09-27 17:17] LABS: Respiratory Syncytial Virus Detected (NotDetected)
== END 2023-09-27 13:57 | disposition home or self-care (01) ==
PROVIDERS: Emergency Provider Nurse Practitioner Family; PCP Family Medicine
DX: B97.4 Respiratory syncytial virus as the cause of diseases classified elsewhere (principal); J44.1 Chronic obstructive pulmonary disease with (acute) exacerbation; R05.8 Other specified cough; R09.81 Nasal congestion; N18.6 End stage renal disease; E11.9 Type 2 diabetes mellitus without complications; E03.9 Hypothyroidism, unspecified
CPT/HCPCS: 71046; 87632; 87635; 87636; 96372; 99204; 99212; G0463; J0696

== ENCOUNTER 2023-10-26 13:59 | Emergency (ER) | payer MEDICARE, OTHER, SELFPAY ==
--- NOTE | 2023-10-26 14:12 | XR_ITS ---
PROCEDURE INFORMATION: Exam: XR Right Knee Exam date and time: 10/26/2023 2:08 PM Age: 83 years old Clinical indication: Injury or trauma; Fall; Blunt trauma; Patient HX: Twisting injury to right knee. ; Additional info: Pain TECHNIQUE: Imaging protocol: Radiologic exam of the right knee. Views: 3 views. COMPARISON: No prior relevant imaging available for comparison FINDINGS: Bones/joints: Osteopenia. No acute fracture identified. No dislocation. Mild tricompartmental degenerative changes. Chondrocalcinosis. Mild/moderate suprapatellar joint effusion. Soft tissues: Unremarkable. IMPRESSION: No acute osseous abnormality. Osteopenia which can limit evaluation for nondisplaced fracture. Suprapatellar joint effusion. CT or MR could be obtained to further evaluate as clinically indicated.
[2023-10-26 15:00] VITALS: BP 100/48; PULSE 72; RESP 18; TEMP 36.7; O2SAT 96; BMI 22.8
--- NOTE | 2023-10-26 15:22 | ED_ITS ---
Discharge Plan Disposition Patient Disposition: Home, Self-Care Condition: Good Prescriptions Prescriptions: No Action latanoprost 0.005 % drops OPHTHALMIC timolol maleate 0.25 % drops 1 drp Eye-Both calcitriol 0.25 mcg capsule 1.25 mcg PO DAILY ascorbic acid (vitamin C) 500 mg capsule 1,000 mg PO DAILY calcium acetate 667 mg tablet 667 mg PO TID midodrine 10 mg tablet 10 mg PO DAILY (DME) True Metrix Glucose Test Strip Strip See Rx Instructions .ROUTE .MEDSUPPLY Qty: 10 Rx Instructions: As directed Marie-Antonella Rx 1-60-300 mg-mg-mcg tablet 1 tab PO DAILY citalopram [Celexa] 20 mg tablet 20 mg PO DAILY Qty: 30 3RF pantoprazole 40 mg tablet,delayed release (DR/EC) See Rx Instructions .ROUTE .COMPLEX Qty: 30 2RF Dose Instruction: TAKE 1 TABLET BY MOUTH DAILY Rx Instructions: TAKE 1 TABLET BY MOUTH DAILY hydrocodone-acetaminophen 5-325 mg tablet 1 - 2 tab PO HS Qty: 60 0RF levothyroxine [Synthroid] 88 mcg tablet 88 mcg PO DAILY Qty: 30 3RF pregabalin 75 mg capsule 75 mg PO DAILY Qty: 30 3RF pregabalin 25 mg capsule 25 mg PO DAILY Qty: 90 3RF Rx Instructions: One tab daily on MWF (dialysis days) aspirin [Aspir-81] 81 mg Tablet,Delayed Release (Dr/Ec) 81 mg PO DAILY guaifenesin [Mucinex] 600 mg tablet extended release 12hr 600 - 1,200 mg PO BIDP PRN (Reason: Congestion) Qty: 30 0RF Referrals Follow up/Referrals: Saw Roa MD [Primary Care Provider] - See instructions Steve Cage DO [Staff Physician] - See instructions Activity Restrictions/Add. Instructions Additional Instructions/Restrictions: Rest the extremity, apply ice for 15 minutes as tolerated three or four times per day, Wear the melony wrap for compression, Elevate the extremity as tolerated while you are resting. Take tylenol for pain. Follow up with Dr. Cage (orthopedics). I put in a referral but you need to call his office and schedule an appointment. Follow up with your regular doctor. GO TO THE ER FOR ANY WORSENING SYMPTOMS Clinical Impressions Clinical Impression: Right knee sprain, Knee pain, right Instructions Patient Instructions: DI for Knee Sprain, Knee Sprain, DI for Knee Pain Discharge ED Provider: John Charles [facility] General Stated complaint: right knee pain, non weight bearing Time Seen by Provider: 10/26/23 15:22 History of Present Illness Provider Complaint: She states that when she was standing up in confucianism about 1 hour ago she began having right knee pain. She denies any fall or injury. She states that since then she has felt her knee start to swell and it has been very painful to walk on it. She denies any other complaints. Related Data Home Medications Medication Instructions Recorded Confirmed latanoprost 0.005 % eye drops ophthalmic (eye) 04/18/20 10/07/23 blood sugar diagnostic (True #10 ea 05/28/22 10/07/23 Metrix Glucose Test Strip) midodrine 10 mg tablet 10 mg PO DAILY 08/27/22 10/07/23 timolol maleate 0.25 % eye drops 1 drp Eye-Both 11/28/22 10/07/23 vitamin B comp no.3-folic acid 1 1 tab PO DAILY 03/13/23 10/07/23 mg-vit C 60 mg-biotin 300 mcg tablet (Marie-Antonella Rx) ascorbic acid (vitamin C) 500 mg 1,000 mg PO DAILY 10/07/23 10/07/23 capsule calcitriol 0.25 mcg capsule 1.25 mcg PO DAILY 10/07/23 10/07/23 calcium acetate 667 mg tablet 667 mg PO TID 10/07/23 10/07/23 aspirin 81 mg tablet,delayed 81 mg PO DAILY 10/26/23 10/26/23 release Previous Rx's Medication Instructions Recorded citalopram 20 mg tablet (Celexa) 20 mg PO DAILY #30 tabs 07/17/23 pantoprazole 40 mg tablet,delayed See Rx Instructions .Route 08/06/23 release .COMPLEX #30 tabs hydrocodone 5 mg-acetaminophen 325 1 - 2 tab PO HS pain #60 tabs 09/08/23 mg tablet levothyroxine 88 mcg tablet 88 mcg PO DAILY #30 tabs 09/08/23 (Synthroid) pregabalin 25 mg capsule 25 mg PO DAILY #90 caps 09/08/23 pregabalin 75 mg capsule 75 mg PO DAILY #30 caps 09/08/23 guaifenesin 600 mg tablet, 600 - 1,200 mg (1 - 2 x 600 mg) PO 09/27/23 extended release 12 hr (Mucinex) BIDP PRN Congestion #30 tabs Allergies Allergy/AdvReac Type Severity Reaction Status Date / Time tramadol [TRAMADOL] Allergy Mild Verified 10/26/23 15:36 OTHER Allergy Unknown Uncoded 10/07/23 09:39 [facility] Disclaimer: The information contained in this section may have been updated after the patient was seen, as this information can be updated by other users. Medical History Chronic kidney disease Complete small bowel obstruction Diabetes mellitus, type 2 Diabetic foot ulcer Dialysis patient End-stage renal disease on hemodialysis Heart murmur Hemodialysis patient Hypothyroid Vitamin D deficiency Surgical History History of cholecystectomy History of hip replacement History of hysterectomy Family History Mother Cancer Coronary artery disease Heart attack Diabetes Father Cancer Sister Cancer Social History Smoking Status: Never smoker alcohol intake: never substance use type: denies use current occupational status: retired Travel in the last 8 weeks: None household members: none ROS Obtained: Yes All systems reviewed & no additional complaints except as documented Constitutional Constitutional: Denies chills and Denies fever(s) Eyes Eyes: Denies eye discharge ENT Ears, Nose, Mouth, and Throat: Denies dizziness, Denies otalgia and Denies sore throat Cardiovascular Cardiovascular: Denies chest pain Respiratory Respiratory: Denies shortness of breath, Denies chest congestion, Denies cough, Denies stridor and Denies wheezing Gastrointestinal Gastrointestingal: Denies nausea or vomiting Musculoskeletal Musculoskeletal: Reports as per HPI Integumentary/Breasts Skin/Breast: Denies rash Neurologic Neurologic: Denies dizziness and Denies paresthesias Allergic/Immunologic Allergic/Immunologic: Denies wheezing Physical Exam General General appearance: alert and in no apparent distress Head Head exam: atraumatic, normocephalic and normal inspection Eye Eye exam: Present normal appearance, PERRL and EOMI ENT ENT exam: Present normal exam, normal oropharynx, mucous membranes moist, TM's normal bilaterally and normal external ear exam Neck Neck exam: Present normal inspection, full ROM and trachea midline; Absent meningismus or lymphadenopathy Chest Chest inspection: Present normal inspection and symmetric chest wall rise; Absent tenderness Respiratory Respiratory exam: Present normal lung sounds bilaterally; Absent respiratory distress Cardiovascular Cardiovascular exam: Present regular rate and normal rhythm; Absent JVD Abdominal Exam Abdominal exam: Present soft and normal bowel sounds; Absent distention, tenderness or guarding Extremities Exam Extremities exam: Present normal capillary refill; Absent calf tenderness Expanded Lower Extremity Exam Right: Hip/Pelvis exam: Present normal inspection and full ROM; Absent tenderness Upper leg exam: Present normal inspection and full ROM; Absent tenderness Knee exam: Present tenderness, swelling and knee extension intact; Absent abrasion, laceration, ecchymosis, deformity, crepitus, dislocation, erythema, effusion, anterior drawer sign, posterior draw sign, pain with valgus, laxity with valgus, pain with varus or laxity with varus Lower leg exam: Present normal inspection, full ROM and Achilles tendon intact; Absent tenderness or Homans' sign Ankle exam: Present normal inspection and full ROM; Absent tenderness Foot/toe exam: Present normal inspection and full ROM; Absent tenderness Neurovascular/Tendon exam: Present normal capillary refill; Absent pulse deficit, motor deficit, sensory deficit, tendon deficit or extremity cold to touch Gait: observed and limited by pain Back Exam Back exam: Present normal inspection; Absent tenderness Neurological Exam Neurological exam: Present alert and oriented X3 Psychiatric Psychiatric exam: Present normal affect and normal mood Skin Skin exam: Present warm, dry, intact and normal color Lymphatic Lymphatic Findings: no adenopathy Medical Decision Making Medical Records Medical records reviewed: No I reviewed the patient's medical records. Shakir Inquiry Pt receiving controlled substance: No Orders (Tests/Meds): ORDERS Category Date Time Status Knee XR right 3 views [XR knee RT 3V] Stat Exams 10/26/23 14:12 Completed Radiology Data #1: Image(s): Knee Image Reviewed: Yes I reviewed the patient's radiology image and Yes I have reviewed radiologist's interpretation Preliminary Findings: No Fracture Seen PROCEDURE INFORMATION: Exam: XR Right Knee Exam date and time: 10/26/2023 2:08 PM Age: 83 years old Clinical indication: Injury or trauma; Fall; Blunt trauma; Patient HX: Twisting injury to right knee. ; Additional info: Pain TECHNIQUE: Imaging protocol: Radiologic exam of the right knee. Views: 3 views. COMPARISON: No prior relevant imaging available for comparison FINDINGS: Bones/joints: Osteopenia. No acute fracture identified. No dislocation. Mild tricompartmental degenerative changes. Chondrocalcinosis. Mild/moderate suprapatellar joint effusion. Soft tissues: Unremarkable. IMPRESSION: No acute osseous abnormality. Osteopenia which can limit evaluation for nondisplaced fracture. Suprapatellar joint effusion. CT or MR could be obtained to further evaluate as clinically indicated.
[2023-10-26 16:40] VITALS: BP 100/48; PULSE 72; RESP 18; TEMP 36.7; O2SAT 96
== END 2023-10-26 16:40 | disposition home or self-care (01) ==
PROVIDERS: Emergency Provider Nurse Practitioner Family; PCP Family Medicine
DX: S83.91XA Sprain of unspecified site of right knee, initial encounter (principal); E11.22 Type 2 diabetes mellitus with diabetic chronic kidney disease; N18.9 Chronic kidney disease, unspecified; R01.1 Cardiac murmur, unspecified; E03.9 Hypothyroidism, unspecified; X58.XXXA Exposure to other specified factors, initial encounter; M85.862 Other specified disorders of bone density and structure, left lower leg
CPT/HCPCS: 73562; 99212; 99213; G0463

== ENCOUNTER 2023-10-28 12:21 | Emergency (ER) | payer MEDICARE, OTHER, SELFPAY ==
[2023-10-28] VITALS (18 sets, daily range): BP systolic 81–107; BP diastolic 33–48; PULSE 50–98; RESP 15–16; TEMP 36.6–36.7; O2SAT 77–100; BMI 22.8
--- NOTE | 2023-10-28 12:23 | PC.NURSE ---
Dr. Sandy notified of patient's triage blood pressure. Patient states this is normal for her and that she takes medication to raise her blood pressure.
--- NOTE | 2023-10-28 12:47 | CT_ITS ---
FINAL REPORT TECHNIQUE: Thin section axial CT images with coronal and sagittal reformats were performed. This study was performed with techniques to keep radiation doses as low as reasonably achievable (ALARA). Individualized dose reduction techniques using automated exposure control or adjustment of mA and/or kV according to the patient''s size were employed. CLINICAL HISTORY: pop, severe selling, inability to bear weight FINDINGS: There is diffuse severe osteopenia. There is a fracture involving the lateral aspect of the lateral tibial plateau with up to 3 mm of inferior displacement of the lateral fracture fragment. There is a moderate hemarthrosis. Moderate popliteal cyst is identified. IMPRESSION: Fracture of the lateral tibial plateau. Reviewed, Interpreted and Dictated by Lionel Cruz III, MD Transcribed by Mishel Menchaca Authenticated and [facility]
--- NOTE | 2023-10-28 12:50 | ED_ITS ---
Discharge Plan Disposition Patient Disposition: Still a Patient Prescriptions Prescriptions: No Action latanoprost 0.005 % drops OPHTHALMIC timolol maleate 0.25 % drops 1 drp Eye-Both calcitriol 0.25 mcg capsule 1.25 mcg PO DAILY ascorbic acid (vitamin C) 500 mg capsule 1,000 mg PO DAILY calcium acetate 667 mg tablet 667 mg PO TID midodrine 10 mg tablet 10 mg PO DAILY (DME) True Metrix Glucose Test Strip Strip See Rx Instructions .ROUTE .MEDSUPPLY Qty: 10 Rx Instructions: As directed Marie-Antonella Rx 1-60-300 mg-mg-mcg tablet 1 tab PO DAILY citalopram [Celexa] 20 mg tablet 20 mg PO DAILY Qty: 30 3RF pantoprazole 40 mg tablet,delayed release (DR/EC) See Rx Instructions .ROUTE .COMPLEX Qty: 30 2RF Dose Instruction: TAKE 1 TABLET BY MOUTH DAILY Rx Instructions: TAKE 1 TABLET BY MOUTH DAILY levothyroxine [Synthroid] 88 mcg tablet 88 mcg PO DAILY Qty: 30 3RF pregabalin 75 mg capsule 75 mg PO DAILY Qty: 30 3RF pregabalin 25 mg capsule 25 mg PO DAILY Qty: 90 3RF Rx Instructions: One tab daily on MWF (dialysis days) hydrocodone-acetaminophen 5-325 mg tablet 1 - 2 tab PO HS Qty: 60 0RF aspirin [Aspir-81] 81 mg Tablet,Delayed Release (Dr/Ec) 81 mg PO DAILY guaifenesin [Mucinex] 600 mg tablet extended release 12hr 600 - 1,200 mg PO BIDP PRN (Reason: Congestion) Qty: 30 0RF Referrals Follow up/Referrals: Saw Roa MD [Primary Care Provider] - See instructions Clinical Impressions Clinical Impression: Closed fracture of right tibial plateau, End-stage renal disease (ESRD), Hemarthrosis, right knee, Physical deconditioning Discharge ED Provider: Clint Sandy General Adult HPI <Clint Sandy MD - Last Filed: 10/28/23 15:02> General Chief complaint: Fall Stated complaint: [id number], pain in Rt knee Time Seen by Provider: 10/28/23 12:24 Mode of Arrival: Wheelchair Source of Information: Patient Limitations: No Limitations Description of Symptoms (Recalled from ER Triage Doc. by RN): Patient reports falling on Friday and injuring her right knee. States that since that fall she has been unable to get into her wheelchair by herself. Patient does report taking a [place] at 1PM for pain. History of Present Illness HPI narrative: 83-year-old female history of ESRD on hemodialysis Friday, hypertension, hyperlipidemia, COPD, hypothyroidism, presenting with right knee pain. Patient states that she was standing in sabianism 2 days prior to this visit, twisted her knee, had immediate pop, pain, swelling. She came here and was seen in the urgent care. X-rays were negative. Patient was sent home. Since that time, patient has been unable to ambulate and cannot do anything for herself at home. She states that the pain is severe and associated with bruising. It is all over the knee, anterior, posterior, lateral, and nothing makes it better. She is only tried [place] and Tylenol. Has not tried ice or ibuprofen. No actual fall, syncope, pain anywhere else. Patient called ambulance to load her into the car, then needed help to get out of the car here to the emergency department. 100% transfer dependent. Patient skipped dialysis today in order to come to the emergency department for further evaluation. Related Data Home Medications Medication Instructions Recorded Confirmed latanoprost 0.005 % eye drops ophthalmic (eye) 04/18/20 10/07/23 blood sugar diagnostic (True #10 ea 05/28/22 10/07/23 Metrix Glucose Test Strip) midodrine 10 mg tablet 10 mg PO DAILY 08/27/22 10/07/23 timolol maleate 0.25 % eye drops 1 drp Eye-Both 11/28/22 10/07/23 vitamin B comp no.3-folic acid 1 1 tab PO DAILY 03/13/23 10/07/23 mg-vit C 60 mg-biotin 300 mcg tablet (Marie-Antonella Rx) ascorbic acid (vitamin C) 500 mg 1,000 mg PO DAILY 10/07/23 10/07/23 capsule calcitriol 0.25 mcg capsule 1.25 mcg PO DAILY 10/07/23 10/07/23 calcium acetate 667 mg tablet 667 mg PO TID 10/07/23 10/07/23 aspirin 81 mg tablet,delayed 81 mg PO DAILY 10/26/23 10/26/23 release Previous Rx's Medication Instructions Recorded citalopram 20 mg tablet (Celexa) 20 mg PO DAILY #30 tabs 07/17/23 pantoprazole 40 mg tablet,delayed See Rx Instructions .Route 08/06/23 release .COMPLEX #30 tabs levothyroxine 88 mcg tablet 88 mcg PO DAILY #30 tabs 09/08/23 (Synthroid) pregabalin 25 mg capsule 25 mg PO DAILY #90 caps 09/08/23 pregabalin 75 mg capsule 75 mg PO DAILY #30 caps 09/08/23 guaifenesin 600 mg tablet, 600 - 1,200 mg (1 - 2 x 600 mg) PO 09/27/23 extended release 12 hr (Mucinex) BIDP PRN Congestion #30 tabs hydrocodone 5 mg-acetaminophen 325 1 - 2 tab PO HS pain #60 tabs 10/28/23 mg tablet Allergies Allergy/AdvReac Type Severity Reaction Status Date / Time tramadol [TRAMADOL] Allergy Mild Verified 10/26/23 15:36 OTHER Allergy Unknown Uncoded 10/07/23 09:39 [facility] <Clint Sandy MD - Last Filed: 10/28/23 15:02> [facility] Disclaimer: The information contained in this section may have been updated after the patient was seen, as this information can be updated by other users. Medical History Chronic kidney disease Complete small bowel obstruction Diabetes mellitus, type 2 Diabetic foot ulcer Dialysis patient End-stage renal disease on hemodialysis Heart murmur Hemodialysis patient Hypothyroid Vitamin D deficiency Surgical History History of cholecystectomy History of hip replacement History of hysterectomy Family History Mother Cancer Coronary artery disease Heart attack Diabetes Father Cancer Sister Cancer Social History Smoking Status: Never smoker alcohol intake: never substance use type: denies use current occupational status: retired Travel in the last 8 weeks: None household members: none <Clint Sandy MD - Last Filed: 10/28/23 15:02> ELIANA Obtained: Yes All systems reviewed & no additional complaints except as documented Physical Exam <Clint Sandy MD - Last Filed: 10/28/23 15:02> General General appearance: alert and in no apparent distress Head Head exam: atraumatic and normocephalic Eye Eye exam: Present normal appearance, PERRL and EOMI ENT ENT exam: Present mucous membranes moist Neck Neck exam: Present normal inspection, full ROM and trachea midline Respiratory Respiratory exam: Absent respiratory distress, wheezes, stridor, accessory muscle use or prolonged expiratory phase Cardiovascular Cardiovascular exam: Present normal rhythm Abdominal Exam Abdominal exam: Present soft; Absent distention, tenderness, guarding, rebound or rigidity Extremities Exam Extremities exam: Present edema and other (Tenderness, swelling, bruising, effusion right knee. Suprapatellar and infrapatellar effusion. Joint space tenderness, structurally intact with negative ACL/PCL/MCL/LCL provocative testing. Intolerant of this case testing. Neurovascular intact distally.) Neurological Exam Neurological exam: Present alert, oriented X3, CN II-XII intact and normal gait; Absent motor sensory deficit Skin Skin exam: Present warm and dry; Absent diaphoresis or erythema Medical Decision Making <Clint Sandy MD - Last Filed: 10/28/23 15:02> Medical Records Medical records reviewed: Yes I reviewed the patient's medical records. Shakir Inquiry Pt receiving controlled substance: No Shakir was queried for this patient: No Vital Signs: 10/28/23 12:22 10/28/23 12:44 10/28/23 12:45 Temperature 97.8 F Temperature Source Oral Pulse Rate 98 H 98 H Pulse Rate [Radial] 89 Respiratory Rate 16 Blood Pressure 83/33 L 85/35 L Blood Pressure [Left Arm] 82/34 L Blood Pressure Mean 37 51 Blood Pressure Mean [Left Arm] 50 Blood Pressure Source [Left Arm] Automatic Cuff Blood Pressure Position [Left Arm] Sitting 02 Sat by Pulse Oximetry 91 L 77 L 77 L Oxygen Delivery Method Room Air 10/28/23 12:46 10/28/23 13:12 10/28/23 13:53 Temperature Temperature Source Pulse Rate 98 H 76 Pulse Rate [Radial] Respiratory Rate Blood Pressure 97/43 L 107/45 L 101/46 L Blood Pressure [Left Arm] Blood Pressure Mean 61 Blood Pressure Mean [Left Arm] Blood Pressure Source [Left Arm] Blood Pressure Position [Left Arm] 02 Sat by Pulse Oximetry 77 L 99 99 Oxygen Delivery Method Room Air Room Air 10/28/23 14:00 10/28/23 14:30 10/28/23 15:00 Temperature Temperature Source Pulse Rate 79 76 82 Pulse Rate [Radial] Respiratory Rate Blood Pressure 100/46 L 94/46 L 100/48 L Blood Pressure [Left Arm] Blood Pressure Mean 61 Blood Pressure Mean [Left Arm] Blood Pressure Source [Left Arm] Blood Pressure Position [Left Arm] 02 Sat by Pulse Oximetry 99 99 100 Oxygen Delivery Method Room Air 10/28/23 15:31 10/28/23 16:02 10/28/23 16:30 Temperature Temperature Source Pulse Rate 73 50 L 72 Pulse Rate [Radial] Respiratory Rate Blood Pressure 93/39 L 106/48 L 98/41 L Blood Pressure [Left Arm] Blood Pressure Mean 58 Blood Pressure Mean [Left Arm] Blood Pressure Source [Left Arm] Blood Pressure Position [Left Arm] 02 Sat by Pulse Oximetry 100 99 97 Oxygen Delivery Method Room Air Room Air 10/28/23 17:00 Temperature Temperature Source Pulse Rate 81 Pulse Rate [Radial] Respiratory Rate Blood Pressure 93/41 L Blood Pressure [Left Arm] Blood Pressure Mean Blood Pressure Mean [Left Arm] Blood Pressure Source [Left Arm] Blood Pressure Position [Left Arm] 02 Sat by Pulse Oximetry 97 Oxygen Delivery Method Room Air Lab Data Lab Results 10/28/23 12:58: WBC 7.7, RBC 3.16 L, Hgb 11.7 L, Hct 36.3 L, MCV 114.7 H, MCH 37.1 H, MCHC 32.3, RDW 15.9, Plt Count 153, MPV 8.9, Neut % (Auto) 81.2 H, Lymph % (Auto) 11.8, [place] % (Auto) 5.1, Eos % (Auto) 1.3, Baso % (Auto) 0.6, Neut # (Auto) 6.3, Lymph # (Auto) 0.9, [place] # (Auto) 0.4, Eos # (Auto) 0.1, Baso # (Auto) 0.1, PT 11.9, INR 1.11 H, APTT 32.7 H, Sodium 137, Potassium 4.5, C hloride 94 L, Carbon Dioxide 32 H, Anion Gap 15.5 H, BUN 27 H, Creatinine 4.50 H , Estimated Creat Clear 9, Estimated GFR 9 L*, Est GFR ( Amer) 11 L*, Glucose 96, Calcium 8.6, Total Bilirubin 1.1, AST 50 H, ALT 38, Alkaline Phosphatase 78, Total Protein 6.7, Albumin 4.1, Globulin 2.6, Albumin/Globulin Ratio 1.6 10/28/23 13:02: VBG pH 7.34, VBG pCO2 51.3 H, VBG pO2 50.8 H, VBG HCO3 26.8, VBG Total CO2 28.4 H, VBG O2 Saturation 83.0 H, VBG Base Excess 1.0, VBG Lactic Acid 3.0 H 10/28/23 17:59: VBG Lactic Acid 2.7 H 10/28/23 12:58 10/28/23 12:58 Orders (Tests/Meds): ED MEDICATIONS Generic Name Dose Route Start Last Admin Trade Name Freq PRN Reason Stop Dose Admin Fentanyl Citrate 25 mcg 10/28/23 12:54 Fentanyl 100mcg/2ml Vial IV 11/27/23 12:53 [id number] PRN Achieve CPOT Score < 3 Discontinued Medications Generic Name Dose Route Start Last Admin Trade Name Freq PRN Reason Stop Dose Admin Diphenhydramine HCl 25 mg 10/28/23 16:08 10/28/23 16:13 Diphenhydramine 50mg/Ml Vial IV 10/28/23 16:09 25 mg ONCE ONE Administration Sodium Chloride 1,000 mls @ 999 mls/hr 10/28/23 13:20 Sod Chlor 0.9% 1000ml Bag IV 10/28/23 14:20 .Q1H1M ONE Ceftriaxone Sodium 2 gm/ 100 mls @ 200 mls/hr 10/28/23 13:20 10/28/23 14:21 Sodium Chloride IV 10/28/23 13:49 200 mls/hr ONCE ONE Administration Vancomycin HCl 1,000 mg/ 250 mls @ 125 mls/hr 10/28/23 13:45 10/28/23 14:56 Sodium Chloride IV 10/28/23 15:44 125 mls/hr ONCE ONE Administration Miscellaneous 1 each 10/28/23 13:30 10/28/23 14:58 Vancomycin Consult Request NOTAPPLIC 11/27/23 13:29 1 each CONSULT PHARMACY CLIFF Administration ORDERS Category Date Time Status CT knee RT wo con Stat Cat Scan 10/28/23 12:47 Completed CXR --portable [XR chest portable] Stat Exams 10/28/23 13:21 Completed CBC w/Auto Diff [Complete Blood Count Auto Diff] Stat Lab 10/28/23 12:58 Completed CMP [Comprehensive Metabolic Panel] Stat Lab 10/28/23 12:58 Completed Lactate Venous Routine Lab 10/28/23 17:59 Completed Lactate Venous Stat Lab 10/28/23 13:02 Completed PT INR [Prothrombin Time INR] Stat Lab 10/28/23 12:58 Completed PTT [Activated Partial Thrombo Time] Stat Lab 10/28/23 12:58 Completed Blood Culture Stat Micro 10/28/23 13:40 Received VBG [Venous Blood Gas] Stat RT 10/28/23 13:02 Completed Medical Decision Narrative: 83-year-old female history of ESRD on hemodialysis Friday, hypertension, hyperlipidemia, COPD, hypothyroidism, presenting with right knee pain. Patient states that she was standing in sabianism 2 days prior to this visit, twisted her knee, had immediate pop, pain, swelling. She came here and was seen in the urgent care. X-rays were negative. Patient was sent home. Since that time, patient has been unable to ambulate and cannot do anything for herself at home. She states that the pain is severe and associated with bruising. It is all over the knee, anterior, posterior, lateral, and nothing makes it better. She is only tried [place] and Tylenol. Has not tried ice or ibuprofen. No actual fall, syncope, pain anywhere else. Patient called ambulance to load her into the car, then needed help to get out of the car here to the emergency department. 100% transfer dependent. Patient skipped dialysis today in order to come to the emergency department for further evaluation. History was obtained via conversation with patient and family. On arrival, patient hemodynamically stable, alert, oriented x4, appropriate, GCS 15, moving all extremities spontaneously, pupils equal and reactive to light. Full physical exam performed and significant for chronically ill-appearing woman in no acute distress. She does have right knee swelling, tenderness and effusion. It is warm, tender, large obvious effusion. No obvious deformity. Structurally intact, but patient intolerant of meniscus provocative testing. Range of motion limited secondary to pain. Pulses and sensation intact distally. Differential includes fracture, sprain, strain, dislocation, hemarthrosis, ligamentous injury, meniscus injury, among others. Patient was given fentanyl IV for symptomatic management and correction of underlying abnormalities. Workup independently interpreted and significant for no leukocytosis. Patient is hypotensive, mildly tachycardic and has lactate of 3.0. VBG not acidotic. Chemistry with creatinine 4.[address] knee with lateral tibial plateau fracture and large hemarthrosis. Chest x-ray without acute cardiopulmonary or airspace disease see radiology read for full review of final results. On reevaluation, patient resting comfortably in bed. Because patient has need for orthopedics and inpatient admission for deconditioning as well as dialysis, [facility] was contacted. Prior to [facility] contacting and further disposition, care had not oncoming physician. Patient will need admitted to a facility with orthopedic coverage as well as dialysis for current comorbidities. <Elder Abarca, DO - Last Filed: 10/28/23 18:15> Vital Signs: 10/28/23 12:22 10/28/23 12:44 10/28/23 12:45 Temperature 97.8 F Temperature Source Oral Pulse Rate 98 H 98 H Pulse Rate [Radial] 89 Respiratory Rate 16 Blood Pressure 83/33 L 85/35 L Blood Pressure [Left Arm] 82/34 L Blood Pressure Mean 37 51 Blood Pressure Mean [Left Arm] 50 Blood Pressure Source [Left Arm] Automatic Cuff Blood Pressure Position [Left Arm] Sitting 02 Sat by Pulse Oximetry 91 L 77 L 77 L Oxygen Delivery Method Room Air 10/28/23 12:46 10/28/23 13:12 10/28/23 13:53 Temperature Temperature Source Pulse Rate 98 H 76 Pulse Rate [Radial] Respiratory Rate Blood Pressure 97/43 L 107/45 L 101/46 L Blood Pressure [Left Arm] Blood Pressure Mean 61 Blood Pressure Mean [Left Arm] Blood Pressure Source [Left Arm] Blood Pressure Position [Left Arm] 02 Sat by Pulse Oximetry 77 L 99 99 Oxygen Delivery Method Room Air Room Air 10/28/23 14:00 10/28/23 14:30 10/28/23 15:00 Temperature Temperature Source Pulse Rate 79 76 82 Pulse Rate [Radial] Respiratory Rate Blood Pressure 100/46 L 94/46 L 100/48 L Blood Pressure [Left Arm] Blood Pressure Mean 61 Blood Pressure Mean [Left Arm] Blood Pressure Source [Left Arm] Blood Pressure Position [Left Arm] 02 Sat by Pulse Oximetry 99 99 100 Oxygen Delivery Method Room Air 10/28/23 15:31 10/28/23 16:02 10/28/23 16:30 Temperature Temperature Source Pulse Rate 73 50 L 72 Pulse Rate [Radial] Respiratory Rate Blood Pressure 93/39 L 106/48 L 98/41 L Blood Pressure [Left Arm] Blood Pressure Mean 58 Blood Pressure Mean [Left Arm] Blood Pressure Source [Left Arm] Blood Pressure Position [Left Arm] 02 Sat by Pulse Oximetry 100 99 97 Oxygen Delivery Method Room Air Room Air 10/28/23 17:00 Temperature Temperature Source Pulse Rate 81 Pulse Rate [Radial] Respiratory Rate Blood Pressure 93/41 L Blood Pressure [Left Arm] Blood Pressure Mean Blood Pressure Mean [Left Arm] Blood Pressure Source [Left Arm] Blood Pressure Position [Left Arm] 02 Sat by Pulse Oximetry 97 Oxygen Delivery Method Room Air Lab Data Lab Results 10/28/23 12:58: WBC 7.7, RBC 3.16 L, Hgb 11.7 L, Hct 36.3 L, MCV 114.7 H, MCH 37.1 H, MCHC 32.3, RDW 15.9, Plt Count 153, MPV 8.9, Neut % (Auto) 81.2 H, Lymph % (Auto) 11.8, [place] % (Auto) 5.1, Eos % (Auto) 1.3, Baso % (Auto) 0.6, Neut # (Auto) 6.3, Lymph # (Auto) 0.9, [place] # (Auto) 0.4, Eos # (Auto) 0.1, Baso # (Auto) 0.1, PT 11.9, INR 1.11 H, APTT 32.7 H, Sodium 137, Potassium 4.5, C hloride 94 L, Carbon Dioxide 32 H, Anion Gap 15.5 H, BUN 27 H, Creatinine 4.50 H , Estimated Creat Clear 9, Estimated GFR 9 L*, Est GFR ( Amer) 11 L*, Glucose 96, Calcium 8.6, Total Bilirubin 1.1, AST 50 H, ALT 38, Alkaline Phosphatase 78, Total Protein 6.7, Albumin 4.1, Globulin 2.6, Albumin/Globulin Ratio 1.6 10/28/23 13:02: VBG pH 7.34, VBG pCO2 51.3 H, VBG pO2 50.8 H, VBG HCO3 26.8, VBG Total CO2 28.4 H, VBG O2 Saturation 83.0 H, VBG Base Excess 1.0, VBG Lactic Acid 3.0 H 10/28/23 17:59: VBG Lactic Acid 2.7 H Orders (Tests/Meds): ED MEDICATIONS Generic Name Dose Route Start Last Admin Trade Name Freq PRN Reason Stop Dose Admin Fentanyl Citrate 25 mcg 10/28/23 12:54 Fentanyl 100mcg/2ml Vial IV 11/27/23 12:53 [id number] PRN Achieve CPOT Score < 3 Discontinued Medications Generic Name Dose Route Start Last Admin Trade Name Freq PRN Reason Stop Dose Admin Diphenhydramine HCl 25 mg 10/28/23 16:08 10/28/23 16:13 Diphenhydramine 50mg/Ml Vial IV 10/28/23 16:09 25 mg ONCE ONE Administration Sodium Chloride 1,000 mls @ 999 mls/hr 10/28/23 13:20 Sod Chlor 0.9% 1000ml Bag IV 10/28/23 14:20 .Q1H1M ONE Ceftriaxone Sodium 2 gm/ 100 mls @ 200 mls/hr 10/28/23 13:20 10/28/23 14:21 Sodium Chloride IV 10/28/23 13:49 200 mls/hr ONCE ONE Administration Vancomycin HCl 1,000 mg/ 250 mls @ 125 mls/hr 10/28/23 13:45 10/28/23 14:56 Sodium Chloride IV 10/28/23 15:44 125 mls/hr ONCE ONE Administration Miscellaneous 1 each 10/28/23 13:30 10/28/23 14:58 Vancomycin Consult Request NOTAPPLIC 11/27/23 13:29 1 each CONSULT PHARMACY CLIFF Administration ORDERS Category Date Time Status CT knee RT wo con Stat Cat Scan 10/28/23 12:47 Completed CXR --portable [XR chest portable] Stat Exams 10/28/23 13:21 Completed CBC w/Auto Diff [Complete Blood Count Auto Diff] Stat Lab 10/28/23 12:58 Completed CMP [Comprehensive Metabolic Panel] Stat Lab 10/28/23 12:58 Completed Lactate Venous Routine Lab 10/28/23 17:59 Completed Lactate Venous Stat Lab 10/28/23 13:02 Completed PT INR [Prothrombin Time INR] Stat Lab 10/28/23 12:58 Completed PTT [Activated Partial Thrombo Time] Stat Lab 10/28/23 12:58 Completed Blood Culture Stat Micro 10/28/23 13:40 Received VBG [Venous Blood Gas] Stat RT 10/28/23 13:02 Completed Medical Decision Narrative: 83-year-old female history of ESRD on hemodialysis Friday, hypertension, hyperlipidemia, COPD, hypothyroidism, presenting with right knee pain. Patient states that she was standing in sabianism 2 days prior to this visit, twisted her knee, had immediate pop, pain, swelling. She came here and was seen in the urgent care. X-rays were negative. Patient was sent home. Since that time, patient has been unable to ambulate and cannot do anything for herself at home. She states that the pain is severe and associated with bruising. It is all over the knee, anterior, posterior, lateral, and nothing makes it better. She is only tried [place] and Tylenol. Has not tried ice or ibuprofen. No actual fall, syncope, pain anywhere else. Patient called ambulance to load her into the car, then needed help to get out of the car here to the emergency department. 100% transfer dependent. Patient skipped dialysis today in order to come to the emergency department for further evaluation. History was obtained via conversation with patient and family. On arrival, patient hemodynamically stable, alert, oriented x4, appropriate, GCS 15, moving all extremities spontaneously, pupils equal and reactive to light. Full physical exam performed and significant for chronically ill-appearing woman in no acute distress. She does have right knee swelling, tenderness and effusion. It is warm, tender, large obvious effusion. No obvious deformity. Structurally intact, but patient intolerant of meniscus provocative testing. Range of motion limited secondary to pain. Pulses and sensation intact distally. Differential includes fracture, sprain, strain, dislocation, hemarthrosis, ligamentous injury, meniscus injury, among others. Patient was given fentanyl IV for symptomatic management and correction of underlying abnormalities. Workup independently interpreted and significant for no leukocytosis. Patient is hypotensive, mildly tachycardic and has lactate of 3.0. VBG not acidotic. Chemistry with creatinine 4.[address] knee with lateral tibial plateau fracture and large hemarthrosis. Chest x-ray without acute cardiopulmonary or airspace disease see radiology read for full review of final results. On reevaluation, patient resting comfortably in bed. Because patient has need for orthopedics and inpatient admission for deconditioning as well as dialysis, [facility] was contacted. Prior to [facility] contacting and further disposition, care had not oncoming physician. Patient will need admitted to a facility with orthopedic coverage as well as dialysis for current comorbidities. Dr. Abarca: Spoke to Dr. Arriaga, hospitalist at [facility] who has accepted admission. Patient remains medically stable and in no acute distress at this time. Critical Care <Clint Sandy MD - Last Filed: 10/28/23 15:02> Critical Care Time Critical Care Time: No
[2023-10-28 13:10] LABS: Basophils # 0.1 K/mm3 (0-0.2); Basophils % 0.6 % (0.1-2.0); Eosinophils # 0.1 K/mm3 (0.0-0.4); Eosinophils % 1.3 % (0.1-12.0); Hematocrit 36.3 % (37.0-47.0); Hemoglobin 11.7 g/dL (12.2-16.2); Lymphocytes # 0.9 K/mm3 (0.7-4.5); Lymphocytes % 11.8 % (10-50); Mean Corpuscular HGB Conc 32.3 g/dL (31.8-35.4); Mean Corpuscular Hemoglobin 37.1 pg (27.0-31.2); Mean Corpuscular Volume 114.7 fl (81-99); Mean Platelet Volume 8.9 fl (7.4-10.4); Monocytes # 0.4 K/mm3 (0.1-1.0); Monocytes % 5.1 % (1.7-9.3); Neutrophils # 6.3 K/mm3 (1.8-7.8); Neutrophils % 81.2 % (37.0-80.0); Platelet Count 153 K/mm3 (142-424); Red Blood Count 3.16 M/mm3 (4.20-5.40); Red Cell Distribution Width 15.9 % (11.5-17.5); White Blood Count 7.7 K/mm3 (4.8-10.8)
[2023-10-28 13:11] LABS: VBG HCO3 26.8 mmol/L (23-30); VBG PH 7.34 mmol/L (7.31-7.41); VBG PO2 50.8 mmol/L (28-40); VBG Total CO2 28.4 mmol/L (23-27)
[2023-10-28 13:16] LABS: VBG PCO2 51.3 mmol/L (35-51)
--- NOTE | 2023-10-28 13:17 | PC.NURSE ---
aware of VBG results aware that pt was placed on 2 L NC with a oxygen sat of 88 on RA
--- NOTE | 2023-10-28 13:21 | XR_ITS ---
FINAL REPORT CLINICAL HISTORY: Shortness of breath COMPARISON: 12/17/2022 FINDINGS: A single portable view of the chest was obtained. The heart size and pulmonary vascularity are within normal limits. The mediastinum is within normal limits. There is mild linear atelectasis or scar in the right lung base. The bony thorax is intact. IMPRESSION: Mild linear atelectasis or scar right lung base. Reviewed, Interpreted and Dictated by Lionel Cruz III, MD Transcribed by Melanie Leavitt Authenticated and [facility]
[2023-10-28 13:23] LABS: Activated Partial Thrombo Time 32.7 seconds (22.8-30.6); INR 1.11 (0.9-1.1); Prothrombin Time 11.9 seconds (10.1-12.5)
[2023-10-28 13:25] LABS: Chloride 94 mmol/L (98-107); Potassium 4.5 mmoL/L (3.5-5.1); Sodium 137 mmol/L (136-145)
[2023-10-28 13:28] LABS: Alanine Aminotransferase 38 U/L (12-78); Albumin Level 4.1 g/dl (3.5-5.0); Albumin/Globulin Ratio 1.6 (1.1-1.8); Alkaline Phosphatase 78 U/L (38-126); Anion Gap 15.5 mEq/L (5-15); Aspartate Amino Transferase 50 U/L (14-36); Bilirubin,Total 1.1 mg/dl (0.2-1.3); Blood Urea Nitrogen 27 mg/dl (7-17); Calcium 8.6 mg/dl (8.4-10.2); Carbon Dioxide 32 mmol/L (22.0-30.0); Creatinine Clearance Estimated 9 mL/min (50-200); Estimated Glomerular Filt Rate 9 ml/min (>60); GFR (African American) 11 ML/MIN (>60); Globulin 2.6 g/dL (1.3-3.2); Glucose 96 mg/dl (74-100); Total Protein,Serum 6.7 g/dl (6.3-8.2)
--- NOTE | 2023-10-28 13:31 | PC.NURSE ---
critical creat of 4.5 notified to
[2023-10-28] MEDS: CEFTRIAXONE SODIUM 2 GM in 0.9 % SODIUM CHLORIDE 100 ML IV (14:21)
--- NOTE | 2023-10-28 14:45 | PC.NURSE ---
called [facility] per Dr Sandy to see about getting this pt transferrred to [place] for Dialysis. advised they would call back
[2023-10-28] MEDS: VANCOMYCIN HCL 1,000 MG in 0.9 % SODIUM CHLORIDE 250 ML 125 MG IV (14:56)
[2023-10-28] MEDS: VANCOMYCIN CONSULT REQUEST 1 EACH NOTAPPLIC (14:58)
--- NOTE | 2023-10-28 15:25 | PC.NURSE ---
called [facility] again and tried to make contact about this pt. They were going to call Gregory and find out since it had been about 45 mins.
--- NOTE | 2023-10-28 16:05 | PC.NURSE ---
TRN called into patient room by family member. Patient complains of arm itching at IV site. Vancomycin running at present. Pt denies any SOA at this time. IV site is red from patient scratching, does not appear infiltrated at this time. IV still flushed and draws at present. IV pump paused. Dr. Abarca informed. Dr. Abarca at bedside for patient evaluation. New order for benedryl and to continue vancomycin infusion.
--- NOTE | 2023-10-28 16:07 | PC.NURSE ---
Rounded on Pt to see if they had any needs. Pt advised her IV was itching, thought it might have been an allergic reaction. Advised the nurse and she went and looked at it.
[2023-10-28] MEDS: diphenhydrAMINE 50MG/ML VIAL 25 MG IV (16:13)
--- NOTE | 2023-10-28 16:37 | PC.NURSE ---
speaking with [facility] for possible transfer
--- NOTE | 2023-10-28 16:55 | ECG_ITS ---
APPROVED REPORT Exam: Resting ECG HR:83 bpm ECG Measurements Heart Rate 83 AXES CA 156 P 48 QRSd 88 QRS 54 QT 364 T 62 QTc 404 Conclusion SINUS RHYTHM WITH SINUS ARRHYTHMIA NORMAL ECG UNCONFIRMED REPORT Electronically signed by : TARA CORDOVA, 10/28/2023 23:48:02
--- NOTE | 2023-10-28 17:18 | PC.NURSE ---
speaking with [facility]
--- NOTE | 2023-10-28 17:34 | PC.NURSE ---
Dr Abarca spoke with Dr Arriaga at [facility] and he accepted this pt and they would call back with a bed and roon assignment
[2023-10-28 18:01] LABS: Lactate Venous 2.7 mmol/L (0.4-2.0)
--- NOTE | 2023-10-28 18:31 | PC.NURSE ---
ROUNDED ON PT SHE IS SLEEPING IN BED NO NEEDS AT THIS TIME, CALL LIGHT IN REACH
--- NOTE | 2023-10-28 21:03 | PC.NURSE ---
Request called for [facility] transfer of patient to [facility]
== END 2023-10-28 21:42 | disposition short-term general hospital (02) ==
PROVIDERS: Emergency Medicine; Emergency Provider Emergency Medicine; PCP Family Medicine
DX: S82.101A Unspecified fracture of upper end of right tibia, initial encounter for closed fracture (principal); I12.0 Hypertensive chronic kidney disease with stage 5 chronic kidney disease or end stage renal disease; N18.6 End stage renal disease; M25.061 Hemarthrosis, right knee; E03.9 Hypothyroidism, unspecified; J44.9 Chronic obstructive pulmonary disease, unspecified; E78.5 Hyperlipidemia, unspecified; X50.1XXA Overexertion from prolonged static or awkward postures, initial encounter; R00.0 Tachycardia, unspecified
CPT/HCPCS: 71045; 73700; 80053; 82803; 83605; 85025; 85610; 85730; 87040; 93005; 96361; 96365; 96368; 96375; 99285; J0696; J3370

== ENCOUNTER 2024-08-21 10:15 | Emergency (ER) | payer MEDICARE, OTHER, SELFPAY ==
--- NOTE | 2024-08-21 10:30 | XR_ITS ---
PROCEDURE INFORMATION: Exam: XR Left Forearm Exam date and time: 08/21/2024 10:49 AM Age: 84 years old Clinical indication: Injury or trauma; Fall; Blunt trauma (contusions or hematomas); Arm, lower; Left TECHNIQUE: Imaging protocol: Radiologic exam of the left forearm. Views: 2 views. COMPARISON: CR XR WRIST LT MIN 3V 08/21/2024 10:46 AM FINDINGS: Bones/joints: Transverse fracture distal radius as detailed on wrist report same day. No proximal forearm fracture. Soft tissues: Normal. IMPRESSION: Transverse fracture distal radius as detailed on wrist report same day.
--- NOTE | 2024-08-21 10:30 | XR_ITS ---
PROCEDURE INFORMATION: Exam: XR Left Wrist Exam date and time: 08/21/2024 10:46 AM Age: 84 years old Clinical indication: Injury or trauma; Fall; Blunt trauma (contusions or hematomas); Wrist; Left TECHNIQUE: Imaging protocol: Radiologic exam of the left wrist. Views: 3 or more views. COMPARISON: CR XR HAND LT MIN 3V 08/21/2024 10:46 AM FINDINGS: Bones/joints: Transverse fracture distal radius with mild impaction. No extension to the radiocarpal articulation. Ulna intact. Soft tissues: Normal. IMPRESSION: Transverse fracture distal radius with mild impaction. No extension to the radiocarpal articulation.
--- NOTE | 2024-08-21 10:30 | XR_ITS ---
PROCEDURE INFORMATION: Exam: XR Left Hand Exam date and time: 08/21/2024 10:46 AM Age: 84 years old Clinical indication: Injury or trauma; Fall; Blunt trauma (contusions or hematomas); Hand; Left TECHNIQUE: Imaging protocol: Radiologic exam of the left hand. Views: 3 or more views. COMPARISON: No relevant prior studies available. FINDINGS: Bones/joints: Mildly displaced fracture distal 5th metacarpal shaft with impaction into the metacarpal head. Questionable fracture distal 4th metacarpal shaft. No articular extension. Distal radial fracture as detailed on wrist report same day. Soft tissues: Normal. IMPRESSION: 1. Mildly displaced fracture distal 5th metacarpal shaft with impaction into the metacarpal head. 2. Questionable fracture distal 4th metacarpal shaft.
--- NOTE | 2024-08-21 10:31 | XR_ITS ---
PROCEDURE INFORMATION: Exam: XR Left Elbow Exam date and time: 08/21/2024 10:50 AM Age: 84 years old Clinical indication: Injury or trauma; Fall; Blunt trauma (contusions or hematomas); Elbow; Left TECHNIQUE: Imaging protocol: Radiologic exam of the left elbow. Views: 3 or more views. COMPARISON: CR Forearm L 08/21/2024 10:49 AM FINDINGS: Bones/joints: Normal. Soft tissues: Normal. IMPRESSION: No acute findings.
--- NOTE | 2024-08-21 10:31 | XR_ITS ---
PROCEDURE INFORMATION: Exam: XR Left Hip Exam date and time: 08/21/2024 10:42 AM Age: 84 years old Clinical indication: Injury or trauma; Fall; Blunt trauma (contusions or hematomas); Left; Hip TECHNIQUE: Imaging protocol: Radiologic exam of the left hip. Views: 2 or 3 views hip with pelvis when performed. COMPARISON: CT ABDOMEN PELVIS WO CON 05/10/2022 9:16 AM FINDINGS: Bones/joints: Bilateral hip prosthesis. No acute fracture or dislocation. Severe degenerative changes visualized lumbar spine. Soft tissues: Unremarkable. IMPRESSION: No acute findings.
[2024-08-21 11:20] VITALS: BP 155/62; PULSE 74; RESP 18; TEMP 36.8; O2SAT 95; BMI 22.3
--- NOTE | 2024-08-21 11:31 | ED_ITS ---
Discharge Plan Disposition Patient Disposition: Home, Self-Care Condition: Good Prescriptions Prescriptions: No Action latanoprost 0.005 % drops OPHTHALMIC timolol maleate 0.25 % drops 1 drp Eye-Both calcitriol 0.25 mcg capsule 1.25 mcg PO DAILY ketorolac 0.5 % drops 1 drp Eye-Left prednisolone acetate 1 % drops,suspension 1 drp Eye-Left diclofenac sodium [Voltaren Arthritis Pain] 1 % gel 4 g topical QID Qty: 100 3RF Rx Instructions: apply to single knee, ankle, foot; for foot includes sole/toes/top of foot albuterol sulfate 2.5 mg /3 mL (0.083 %) solution for nebulization 2.5 mg inhalation QID PRN (Reason: shortness of breath or wheezing) 90 Days Qty: 90 1RF ascorbic acid (vitamin C) 500 mg capsule 1,000 mg PO DAILY 90 Days Qty: 180 0RF budesonide-formoterol [Symbicort] 160-4.5 mcg/actuation HFA aerosol inhaler 2 puff inhalation BID 90 Days Qty: 10.2 0RF calcium acetate 667 mg tablet 667 mg PO TID 90 Days Qty: 270 0RF midodrine 10 mg tablet 10 mg PO DAILY 90 Days Qty: 90 0RF Marie-Antonella Rx 1-60-300 mg-mg-mcg tablet 1 tab PO DAILY 90 Days Qty: 90 0RF (DME) True Metrix Glucose Test Strip Strip See Rx Instructions .ROUTE .MEDSUPPLY Qty: 100 2RF Rx Instructions: As directed azithromycin 250 mg tablet See Rx Instructions PO .COMPLEX Qty: 6 0RF Rx Instructions: For 250 mg dose pack: take 500 mg today (day 1), then 250 mg for 4 days (days 2-5) PO pantoprazole 40 mg tablet,delayed release (DR/EC) 40 mg PO DAILY 90 Days Qty: 90 0RF levothyroxine [Synthroid] 88 mcg tablet 88 mcg PO DAILY 90 Days Qty: 90 0RF citalopram [Celexa] 20 mg tablet 20 mg PO DAILY 90 Days Qty: 90 0RF pregabalin 75 mg capsule 75 mg PO DAILY Qty: 30 3RF pregabalin 25 mg capsule 25 mg PO DAILY Qty: 90 3RF Rx Instructions: One tab daily on MWF (dialysis days) hydrocodone-acetaminophen 5-325 mg tablet 1 - 2 tab PO HS Qty: 60 0RF aspirin [Aspir-81] 81 mg Tablet,Delayed Release (Dr/Ec) 81 mg PO DAILY Referrals Follow up/Referrals: Steve Cage DO [Staff Physician] - See instructions (Call office for appointment) Saw Roa MD [Primary Care Provider] - See instructions Activity Restrictions/Add. Instructions Additional Instructions/Restrictions: *RICE, Rest the extremity, Ice 15-20 minutes 3-4 times daily, Compress- wear the ebenezer wrap as discussed as much as possible to help reduce swelling and pain, Elevate the extremity when at rest *Ebenezer wrap is for support and help control swelling, use it except in the shower. Be sure that is not to tight but not to loose either *Elevate when resting? *Ibuprofen 600-800mg every 6-8 hours as needed for pain an inflammation if you can take it. If need something more can take Tylenol in between doses of Ibuprofen to help Immediately follow up with your family doctor for new or worsening of symptoms, or no noticeable improvement over the next 3-5 days Call Orthopedic office for appointment Clinical Impressions Clinical Impression: Fracture of wrist Qualifiers: Encounter type: initial encounter Fracture type: closed Laterality: left Q ualified Code(s): S62.102A - Fracture of unspecified carpal bone, left wrist, initial encounter for closed fracture Instructions Patient Instructions: Wrist Fracture, DI for Wrist Fracture, How To Perform RICE (Rest, Ice, Compress, Elevate) Print Language Print Language: Lithuanian Discharge ED Provider: Manuela Pillai [facility] [place] HPI General Stated complaint: AO fall left arm/wrist pain Mode of Arrival: Ambulatory Source of Information: Patient Limitations: No Limitations Time Seen by Provider: 08/21/24 11:31 Description of Symptoms (Recalled from Triage Doc. by RN): PATIENT STATES SHE WAS SITTING ON THE SIDE OF THE BED THIS MORNING WHEN SHE SLID AND FELL ONTO THE FLOOR. PATIENT C/O PAIN TO LEFT HAND, WRIST, FOREARM, ELBOW, AND HIP. BRUISING AND SWELLING TO LEFT HAND/WRIST HEENT Symptoms (Recalled from RN notes): No Resp Symptoms (Recalled from RN notes): No Skin Symptoms (Recalled from RN notes): No MS Symptoms (Recalled from RN notes): Yes Functional Status (Recalled from RN notes): WNL History of Present Illness Provider Complaint: Patient states that she was sitting on the edge of the bed this morning and she slide off into the floor and put her left hand down to catch herself States that she has been having pain in her left elbow, forearm, wrist and hand along with her left hip States that her hip isnt hurting that bad most of her pain is in her wrist and hurts when she tries to move it Denies hitting her head and denies LOC Related Data Home Medications ?Medication ?Instructions ?Recorded ?Confirmed latanoprost 0.005 % eye drops ophthalmic (eye) 04/18/20 05/27/24 timolol maleate 0.25 % eye drops 1 drp Eye-Both 11/28/22 02/17/24 calcitriol 0.25 mcg capsule 1.25 mcg PO DAILY 10/07/23 05/27/24 aspirin 81 mg tablet,delayed 81 mg PO DAILY 10/26/23 05/27/24 release ketorolac 0.5 % eye drops 1 drp Eye-Left 05/27/24 05/27/24 prednisolone acetate 1 % eye 1 drp Eye-Left 05/27/24 05/27/24 drops,suspension Previous Rx's ?Medication ?Instructions ?Recorded albuterol sulfate 2.5 mg/3 mL 2.5 mg (3 mL) inhalation QID PRN 03/23/24 (0.083 %) solution for nebulization shortness of breath or wheezing 90 days #90 mL ascorbic acid (vitamin C) 500 mg 1,000 mg (2 x 500 mg) PO DAILY 90 03/30/24 days #180 caps blood sugar diagnostic (True #100 ea 03/30/24 Metrix Glucose Test Strip) budesonide-formoterol HFA 160 2 puff inhalation BID 90 days 03/30/24 mcg-4.5 mcg/actuation aerosol #10.2 grams inhaler (Symbicort) calcium acetate 667 mg tablet 667 mg PO TID 90 days #270 tabs 03/30/24 midodrine 10 mg tablet 10 mg PO DAILY 90 days #90 tabs 03/30/24 vitamin B comp no.3-folic acid 1 1 tab PO DAILY 90 days #90 tabs 03/30/24 mg-vit C 60 mg-biotin 300 mcg tablet (Marie-Antonella Rx) diclofenac sodium 1 % topical gel 4 g topical QID joint pain #100 05/27/24 (Voltaren Arthritis Pain) grams azithromycin 250 mg tablet See Rx Instructions PO .COMPLEX #6 06/03/24 tabs citalopram 20 mg tablet (Celexa) 20 mg PO DAILY 90 days #90 tabs 06/22/24 levothyroxine 88 mcg tablet 88 mcg PO DAILY 90 days #90 tabs 06/22/24 (Synthroid) pantoprazole 40 mg tablet,delayed 40 mg PO DAILY 90 days #90 tabs 06/22/24 release pregabalin 25 mg capsule 25 mg PO DAILY #90 caps 07/27/24 pregabalin 75 mg capsule 75 mg PO DAILY #30 caps 07/27/24 hydrocodone 5 mg-acetaminophen 325 1 - 2 tab PO HS pain #60 tabs 07/28/24 mg tablet Allergies Allergy/AdvReac Type Severity Reaction Status Date / Time tramadol (TRAMADOL) Allergy Mild Verified 05/27/24 11:39 OTHER Allergy Unknown Uncoded 05/27/24 11:39 Worker's Comp Is this a Worker's Comp case?: No [facility] Disclaimer: The information contained in this section may have been updated after the patient was seen, as this information can be updated by other users. Medical History COPD exacerbation Heart murmur Diabetic foot ulcer Complete small bowel obstruction End-stage renal disease on hemodialysis Diabetes mellitus, type 2 Dialysis patient Chronic kidney disease Hypothyroid Hemodialysis patient Vitamin D deficiency Surgical History History of cholecystectomy History of hysterectomy History of hip replacement Family History Mother Cancer Coronary artery disease Heart attack Diabetes Father Cancer Sister Cancer Social History Smoking Status: Never smoker alcohol intake: never substance use type: denies use current occupational status: retired Travel in the last 8 weeks: None household members: none Have you lived/traveled outside [place] in past 30 days?: No Contact w/someone who lives/traveled outside US past 30 days?: No Exposure to someone with infectious disease in past 14 days?: No Do you have a fever (greater than 100.4 F or 38 C)?: No Have you tested positive for COVID-19: No Exposed to someone with COVID-19 in past 14 days?: No Do you have a sore throat?: No Do you have a cough?: No Do you have any weakness?: No Do you have any diarrhea?: No Are you experiencing any unusual bleeding?: No Do you have any muscle aches/pain?: No Do you have any abdominal pain?: No Are you experiencing loss of taste or smell?: No ROS Obtained: Yes All systems reviewed & no additional complaints except as documented and Yes Systems reviewed as appropriate & no additional complaints except as documented Constitutional Constitutional: Reports system reviewed and no additional complaints, except as documented and Reports as per HPI ENT Ears, Nose, Mouth, and Throat: Reports system reviewed and no additional complaints, except as documented and Reports as per HPI Cardiovascular Cardiovascular: Reports system reviewed and no additional complaints, except as documented and Reports as per HPI Respiratory Respiratory: Reports system reviewed and no additional complaints, except as documented and Reports as per HPI Gastrointestinal Gastrointestingal: Reports system reviewed and no additional complaints, except as documented and as per HPI Musculoskeletal Musculoskeletal: Reports system reviewed and no additional complaints, except as documented and Reports as per HPI Comments: Pain in left elbow, forearm, wrist and hand and mild pain in left hip after sliding out of bed this am Physical Exam General General appearance: alert and in no apparent distress Chest Chest inspection: Present normal inspection and symmetric chest wall rise Respiratory Respiratory exam: Present normal lung sounds bilaterally; Absent respiratory distress or wheezes Cardiovascular Cardiovascular exam: Present regular rate and normal heart sounds; Absent normal rhythm or bradycardia Expanded Upper Extremity Exam Left: Elbow exam: Present tenderness; Absent swelling Forearm/Wrist exam: Present tenderness, swelling and ecchymosis Hand exam: Present tenderness, swelling and ecchymosis L/R Arms Top View: 2 1. swelling and bruising noted, pain with movement 2. tenderness noted Expanded Lower Extremity Exam Left: Hip/Pelvis exam: Present tenderness and pelvis stable; Absent swelling, ecchymosis, deformity, external rotation or internal rotation Upper leg exam: Present normal inspection Knee exam: Present normal inspection Foot/toe exam: Present normal inspection Neurovascular/Tendon exam: Present normal capillary refill Gait: not tested/not observed Neurological Exam Neurological exam: Present alert, oriented X3 and normal gait Medical Decision Making Medical Records Screening: Per USPSTF and CDC recommendations, given the prevalence of disease in our region, it is our hospital?s policy to screen for HIV and viral Hepatitis for all patients aged 18 and over and those with ongoing risk factors. Shakir Inquiry Pt receiving controlled substance: No Shakir was queried for this patient: No Vital Signs: 08/21/24 11:20 Temperature 98.3 F Temperature Source Oral Pulse Rate [Left Brachial] 74 Respiratory Rate 18 Blood Pressure [Left Arm] 155/62 H Blood Pressure Mean [Left Arm] 93 Blood Pressure Source [Left Arm] Automatic Cuff Blood Pressure Position [Left Arm] Sitting 02 Sat by Pulse Oximetry 95 Oxygen Delivery Method Room Air Orders (Tests/Meds): ORDERS Category Date Time Status XR elbow LT min 3V Stat Exams 08/21/24 10:31 Taken XR forearm LT 2V Stat Exams 08/21/24 10:30 Taken XR hand LT min 3V Stat Exams 08/21/24 10:30 Taken XR hip LT 2-3V w/pelvis Stat Exams 08/21/24 10:31 Taken XR wrist LT min 3V Stat Exams 08/21/24 10:30 Taken Radiology Data #1: Image(s): Elbow and Forearm Image Reviewed: Yes I have reviewed radiologist's interpretation Elbow: IMPRESSION: No acute findings. Forearm: IMPRESSION: Transverse fracture distal radius as detailed on wrist report same day. #2: Image(s): Wrist and Hand Image Reviewed: Yes I have reviewed radiologist's interpretation Wrist: IMPRESSION: Transverse fracture distal radius with mild impaction. No extension to the radiocarpal articulation. Hand: IMPRESSION: 1. Mildly displaced fracture distal 5th metacarpal shaft with impaction into the metacarpal head. 2. Questionable fracture distal 4th metacarpal shaft. #3: Image(s): Hip Image Reviewed: Yes I have reviewed radiologist's interpretation IMPRESSION: No acute findings. Physician Consults Physician Consulted: Dr Cage Comment/Response: Spoke with Dr Cage about xray readings, advised place in volar splint and have her follow up in office Procedures Orthopedic Splinting/Casting Injury #1: Side: left Upper Extremity Injury Location: wrist and hand Upper Extremity Immobilizer: volar splint and applied by nurse/dr drummond Post Cast/Splinting Neuro Status: intact and no change Post Cast/Splinting Vasc Status: intact and no change
[2024-08-21 13:57] VITALS: BP 155/62; PULSE 74; RESP 18; TEMP 36.8; O2SAT 95
== END 2024-08-21 13:59 | disposition home or self-care (01) ==
PROVIDERS: Emergency Provider Nurse Practitioner; PCP Family Medicine
DX: S62.102A Fracture of unspecified carpal bone, left wrist, initial encounter for closed fracture (principal)
CPT/HCPCS: 25600; 73080; 73090; 73110; 73130; 73502; 99213; G0381

== ENCOUNTER 2024-09-02 09:40 | Outpatient (CLI) | payer MEDICARE, OTHER, SELFPAY ==
--- NOTE | 2024-09-02 09:46 | XR_ITS ---
FINAL REPORT CLINICAL HISTORY: Left wrist fx follow-up; distal radius transverse fracture COMPARISON: None available FINDINGS: LEFT WRIST Three views show bone detail obscured by fiberglass splint. There is a mildly comminuted impacted fracture of the distal radial neck with mild displacement. The ulna appears intact. Osteopenia is noted. There is no dislocation. There is also a fracture of the distal 5th metacarpal appearing acute or subacute. The joint spaces appear normal. IMPRESSION: Distal radial and 5th metacarpal fractures as above. Reviewed, Interpreted and Dictated by Collin Mcnally MD Transcribed by Melanie Leavitt Authenticated and [facility]
== END 2024-09-02 23:59 | disposition home or self-care (01) ==
LOC: RAD 09:43
PROVIDERS: PCP Family Medicine; Visit Provider Physician Assistant Surgical
DX: M25.532 Pain in left wrist (principal); S62.102A Fracture of unspecified carpal bone, left wrist, initial encounter for closed fracture
CPT/HCPCS: 73110

== ENCOUNTER 2024-09-08 19:05 | Emergency (ER) | payer MEDICARE, OTHER, SELFPAY ==
[2024-09-08] VITALS (7 sets, daily range): BP systolic 122–171; BP diastolic 51–70; PULSE 99–111; RESP 19–24; TEMP 38.6–39.2; O2SAT 94–96; BMI 22.3
--- NOTE | 2024-09-08 19:22 | ECG_ITS ---
APPROVED REPORT Exam: Resting ECG HR:106 bpm ECG Measurements Heart Rate 106 AXES QRSd 88 QRS 43 QT 326 T 54 QTc 388 Conclusion Sinus tachycardia Electronically signed by : THOMAS CEDENO, 09/08/2024 23:10:15
--- NOTE | 2024-09-08 19:32 | XR_ITS ---
PROCEDURE INFORMATION: Exam: XR Chest Exam date and time: 09/08/2024 7:37 PM Age: 84 years old Clinical indication: Shortness of breath; Additional info: Concern for R sided pneumonia TECHNIQUE: Imaging protocol: Radiologic exam of the chest. Views: 1 view. COMPARISON: CR XR CHEST PORTABLE 10/28/2023 1:27 PM FINDINGS: Lungs: Bilateral interstitial and airspace opacities. Pleural spaces: Unremarkable. No pleural effusion. No pneumothorax. Heart/Mediastinum: Unremarkable. No cardiomegaly. Bones/joints: Unremarkable. IMPRESSION: Bilateral interstitial and airspace opacities. Suspicious for pneumonia.
[2024-09-08 19:38] LABS: Basophils # 0.1 K/mm3 (0-0.2); Basophils % 0.5 % (0.1-2.0); Eosinophils % 0.4 % (0.1-12.0); Hematocrit 30.3 % (37.0-47.0); Lymphocytes # 0.4 K/mm3 (0.7-4.5); Lymphocytes % 3.9 % (10-50); Mean Corpuscular Hemoglobin 33.8 pg (27.0-31.2); Mean Corpuscular Volume 102.4 fl (81-99); Mean Platelet Volume 10.5 fl (7.4-10.4); Monocytes # 0.5 K/mm3 (0.1-1.0); Monocytes % 4.7 % (1.7-9.3); Neutrophils # 9.6 K/mm3 (1.8-7.8); Neutrophils % 89.7 % (37.0-80.0); Platelet Count 199 K/mm3 (142-424); Red Blood Count 2.96 M/mm3 (4.20-5.40); Red Cell Distribution Width 14.5 % (11.5-17.5); White Blood Count 10.6 K/mm3 (4.8-10.8)
[2024-09-08 19:39] LABS: Lactate Venous 1.6 mmol/L (0.4-2.0); VBG HCO3 32.2 mmol/L (23-30); VBG Oxygen Saturation 99.4 % (50-70); VBG PCO2 36.5 mmol/L (35-51); VBG PO2 143.3 mmol/L (28-40); VBG Total CO2 33.3 mmol/L (23-27)
--- NOTE | 2024-09-08 19:43 | [facility].EDCP ---
Discharge Plan Disposition Patient Disposition: Xfer Short-Term Hosp Chief Complaint: Shortness of Breath/Dyspnea Prescriptions Prescriptions: No Action latanoprost 0.005 % drops OPHTHALMIC timolol maleate 0.25 % drops 1 drp Eye-Both calcitriol 0.25 mcg capsule 1.25 mcg PO DAILY ketorolac 0.5 % drops 1 drp Eye-Left prednisolone acetate 1 % drops,suspension 1 drp Eye-Left diclofenac sodium [Voltaren Arthritis Pain] 1 % gel 4 g topical QID Qty: 100 3RF Rx Instructions: apply to single knee, ankle, foot; for foot includes sole/toes/top of foot albuterol sulfate 2.5 mg /3 mL (0.083 %) solution for nebulization 2.5 mg inhalation QID PRN (Reason: shortness of breath or wheezing) 90 Days Qty: 90 1RF ascorbic acid (vitamin C) 500 mg capsule 1,000 mg PO DAILY 90 Days Qty: 180 0RF budesonide-formoterol [Symbicort] 160-4.5 mcg/actuation HFA aerosol inhaler 2 puff inhalation BID 90 Days Qty: 10.2 0RF calcium acetate 667 mg tablet 667 mg PO TID 90 Days Qty: 270 0RF midodrine 10 mg tablet 10 mg PO DAILY 90 Days Qty: 90 0RF Marie-Antonella Rx 1-60-300 mg-mg-mcg tablet 1 tab PO DAILY 90 Days Qty: 90 0RF (DME) True Metrix Glucose Test Strip Strip See Rx Instructions .ROUTE .MEDSUPPLY Qty: 100 2RF Rx Instructions: As directed azithromycin 250 mg tablet See Rx Instructions PO .COMPLEX Qty: 6 0RF Rx Instructions: For 250 mg dose pack: take 500 mg today (day 1), then 250 mg for 4 days (days 2-5) PO pantoprazole 40 mg tablet,delayed release (DR/EC) 40 mg PO DAILY 90 Days Qty: 90 0RF levothyroxine [Synthroid] 88 mcg tablet 88 mcg PO DAILY 90 Days Qty: 90 0RF citalopram [Celexa] 20 mg tablet 20 mg PO DAILY 90 Days Qty: 90 0RF pregabalin 75 mg capsule 75 mg PO DAILY Qty: 30 3RF pregabalin 25 mg capsule 25 mg PO DAILY Qty: 90 3RF Rx Instructions: One tab daily on MWF (dialysis days) hydrocodone-acetaminophen 5-325 mg tablet 1 - 2 tab PO HS Qty: 60 0RF aspirin [Aspir-81] 81 mg Tablet,Delayed Release (Dr/Ec) 81 mg PO DAILY Referrals Follow up/Referrals: Saw Roa MD [Primary Care Provider] - See instructions Clinical Impressions Clinical Impression: Acute on chronic respiratory failure with hypoxemia, Bilateral pneumonia, CHF exacerbation Stand Alone Forms Stand Alone Forms: Transfer Record - ED Print Language Print Language: Bulgarian Discharge ED Provider: Clint Sandy HPI General Chief Complaint: Shortness of Breath/Dyspnea Stated Complaint: SOA,fever ,cough Time Seen by Provider: 09/08/24 19:17 Mode of Arrival: Wheelchair Source of Information: Patient and Relative Limitations: No Limitations Description of Symptoms (Recalled from ER Triage Doc. by RN): Patient complains of SOA, cough and fever x1 week. States cough is baseline for her. Normally on 2L of O2, but currently requires 4L O2. History of Present Illness HPI narrative: Please note that above description of symptoms, in this electronic medical record under categorization of recalled from ER triage doctor by RN are reflective of an initial nursing assessment, however, is not reflective of my full history and physical exam that was personally taken and clarified. Consequentially, this preceding description of symptoms, which may include the patient's categorized chief complaint in the EMR, do not reflect my personal clinical impression, and the ultimate description of history of present illness and patient stated complaints should be deferred to this section of the note. Unless stated otherwise or congruent with this section of the note, additional signs, symptoms, or incongruence should be interpreted as inaccurate with my clinical impression. Related Data Home Medications ?Medication ?Instructions ?Recorded ?Confirmed latanoprost 0.005 % eye drops ophthalmic (eye) 04/18/20 09/02/24 timolol maleate 0.25 % eye drops 1 drp Eye-Both 11/28/22 09/02/24 calcitriol 0.25 mcg capsule 1.25 mcg PO DAILY 10/07/23 09/02/24 aspirin 81 mg tablet,delayed 81 mg PO DAILY 10/26/23 09/02/24 release ketorolac 0.5 % eye drops 1 drp Eye-Left 05/27/24 09/02/24 prednisolone acetate 1 % eye 1 drp Eye-Left 05/27/24 09/02/24 drops,suspension Previous Rx's ?Medication ?Instructions ?Recorded albuterol sulfate 2.5 mg/3 mL 2.5 mg (3 mL) inhalation QID PRN 03/23/24 (0.083 %) solution for nebulization shortness of breath or wheezing 90 days #90 mL ascorbic acid (vitamin C) 500 mg 1,000 mg (2 x 500 mg) PO DAILY 90 03/30/24 days #180 caps blood sugar diagnostic (True #100 ea 03/30/24 Metrix Glucose Test Strip) budesonide-formoterol HFA 160 2 puff inhalation BID 90 days 03/30/24 mcg-4.5 mcg/actuation aerosol #10.2 grams inhaler (Symbicort) calcium acetate 667 mg tablet 667 mg PO TID 90 days #270 tabs 03/30/24 midodrine 10 mg tablet 10 mg PO DAILY 90 days #90 tabs 03/30/24 vitamin B comp no.3-folic acid 1 1 tab PO DAILY 90 days #90 tabs 03/30/24 mg-vit C 60 mg-biotin 300 mcg tablet (Marie-Antonella Rx) diclofenac sodium 1 % topical gel 4 g topical QID joint pain #100 05/27/24 (Voltaren Arthritis Pain) grams azithromycin 250 mg tablet See Rx Instructions PO .COMPLEX #6 06/03/24 tabs citalopram 20 mg tablet (Celexa) 20 mg PO DAILY 90 days #90 tabs 06/22/24 levothyroxine 88 mcg tablet 88 mcg PO DAILY 90 days #90 tabs 06/22/24 (Synthroid) pantoprazole 40 mg tablet,delayed 40 mg PO DAILY 90 days #90 tabs 06/22/24 release pregabalin 25 mg capsule 25 mg PO DAILY #90 caps 07/27/24 pregabalin 75 mg capsule 75 mg PO DAILY #30 caps 07/27/24 hydrocodone 5 mg-acetaminophen 325 1 - 2 tab PO HS pain #60 tabs 07/28/24 mg tablet Allergies Allergy/AdvReac Type Severity Reaction Status Date / Time tramadol (TRAMADOL) Allergy Mild Verified 09/02/24 10:28 OTHER Allergy Unknown Uncoded 09/02/24 10:28 [facility] Disclaimer: The information contained in this section may have been updated after the patient was seen, as this information can be updated by other users. Medical History COPD exacerbation Heart murmur Diabetic foot ulcer Complete small bowel obstruction End-stage renal disease on hemodialysis Diabetes mellitus, type 2 Dialysis patient Chronic kidney disease Hypothyroid Hemodialysis patient Vitamin D deficiency Surgical History History of cholecystectomy History of hysterectomy History of hip replacement Family History Mother Cancer Coronary artery disease Heart attack Diabetes Father Cancer Sister Cancer Social History Smoking Status: Never smoker alcohol intake: never substance use type: denies use current occupational status: retired Travel in the last 8 weeks: None household members: none Have you lived/traveled outside [place] in past 30 days?: No Contact w/someone who lives/traveled outside US past 30 days?: No Exposure to someone with infectious disease in past 14 days?: No Do you have a fever (greater than 100.4 F or 38 C)?: Yes Have you tested positive for COVID-19: No Exposed to someone with COVID-19 in past 14 days?: No Do you have a sore throat?: No Do you have a cough?: Yes Do you have any weakness?: No Do you have any diarrhea?: No Are you experiencing any unusual bleeding?: No Do you have any muscle aches/pain?: No Do you have any abdominal pain?: No Are you experiencing loss of taste or smell?: No Other Medical History Have you received the Pneumonia Vaccine: Yes ROS Obtained: Yes All systems reviewed & no additional complaints except as documented Physical Exam General General appearance: alert and in no apparent distress Neck Neck exam: Present trachea midline Chest Chest inspection: Present normal inspection and symmetric chest wall rise Respiratory Respiratory exam: Present wheezes, accessory muscle use and prolonged expiratory phase; Absent respiratory distress or stridor Cardiovascular Cardiovascular exam: Present normal rhythm, tachycardia and other (Pulses equal and symmetric in upper and lower extremities) Abdominal Exam Abdominal exam: Present soft; Absent distention or tenderness Extremities Exam Extremities exam: Absent edema Neurological Exam Neurological exam: Present alert, oriented X3 and CN II-XII intact Skin Skin exam: Present warm and dry; Absent cyanosis, diaphoresis or pallor HEART Score HEART Score HEART Score assessment performed?: Yes History (anamnesis): Slightly suspicious ECG: Normal Age: >65 years Risk factors: 3 or more risk factors Troponin: </= normal limit HEART Score: 4 Critical Care Critical Care Time Critical Care Time: Yes (cardiac, respiratory, renal) Attestation: On 09/08/24, the high probability of a clinically significant, sudden or life threatening deterioration of the following system(s) required my full and direct attention, intervention and personal management. The time I documented below is in addition to time spent performing reported procedures but includes the following listed in this critical care notation. Total Time Total Critical Care Time: 120 Medical Decision Making Medical Records Medical records reviewed: Yes I reviewed the patient's medical records. Shakir Inquiry Pt receiving controlled substance: No Shakir was queried for this patient: No Vital Signs Vital Signs: 09/08/24 19:06 09/08/24 19:14 09/08/24 19:51 Temperature 102.5 F H Temperature Source Temporal Artery Scan Pulse Rate 111 H 104 H Pulse Rate [Right Radial] 109 H Respiratory Rate 20 19 Blood Pressure 157/65 H 171/70 H Blood Pressure [Right Arm] 157/65 H Blood Pressure Mean [Right Arm] 95 Blood Pressure Source [Right Arm] Automatic Cuff Blood Pressure Position [Right Arm] Supine 02 Sat by Pulse Oximetry 94 L 95 96 Oxygen Delivery Method Nasal Cannula Oxygen Flow Rate (LPM) 4 09/08/24 20:00 09/08/24 20:30 09/08/24 21:00 Temperature Temperature Source Pulse Rate 102 H 102 H 99 H Pulse Rate [Right Radial] Respiratory Rate 24 19 20 Blood Pressure 145/65 H 142/54 H 138/60 Blood Pressure [Right Arm] Blood Pressure Mean [Right Arm] Blood Pressure Source [Right Arm] Blood Pressure Position [Right Arm] 02 Sat by Pulse Oximetry 96 96 95 Oxygen Delivery Method Oxygen Flow Rate (LPM) 09/08/24 21:30 Temperature 101.5 F H Temperature Source Temporal Artery Scan Pulse Rate Pulse Rate [Right Radial] Respiratory Rate 20 Blood Pressure 122/51 L Blood Pressure [Right Arm] Blood Pressure Mean [Right Arm] Blood Pressure Source [Right Arm] Blood Pressure Position [Right Arm] 02 Sat by Pulse Oximetry Oxygen Delivery Method Oxygen Flow Rate (LPM) Lab Data Labs: Lab Results 09/08/24 19:21: WBC 10.6, RBC 2.96 L, Hgb 10.0 L, Hct 30.3 L, MCV 102.4 H, MCH 33.8 H, MCHC 33.0, RDW 14.5, Plt Count 199, MPV 10.5 H, Neut % (Auto) 89.7 H, Lymph % (Auto) 3.9 L, [place] % (Auto) 4.7, Eos % (Auto) 0.4, Baso % (Auto) 0.5, Neut # (Auto) 9.6 H, Lymph # (Auto) 0.4 L, [place] # (Auto) 0.5, Eos # (Auto) 0.0, Baso # (Auto) 0.1, Sodium 138, Potassium 3.4 L, Chloride 92 L, Carbon Dioxide 35 H, Anion Gap 14.4, BUN 18 H, Creatinine 2.40 H, Estimated Creat Clear 16, Estimated GFR 19 L*, Est GFR ( Amer) 23 L, Glucose 127 H, Lactate 1.2, Calcium 8.8, Total Bilirubin 0.9, AST 24, ALT 15, Alkaline Phosphatase 120, NT-Pro-B Natriuret Pep > 04811 H, Total Protein 5.9 L, Albumin 3.4 L, Globulin 2.5, Albumin/Globulin Ratio 1.4 09/08/24 19:39: VBG pH 7.56 H, VBG pCO2 36.5, VBG pO2 143.3 H, VBG HCO3 32.2 H, VBG Total CO2 33.3 H, VBG O2 Saturation 99.4 H, VBG Base Excess 10.0 H, VBG Lactic Acid 1.6 09/08/24 19:21 09/08/24 19:21 Response Orders (Tests/Meds): ED MEDICATIONS Discontinued Medications Generic Name Dose Route Start Last Admin Trade Name Janakq PRN Reason Stop Dose Admin Acetaminophen 1,000 mg 09/08/24 19:46 09/08/24 21:01 Acetaminophen 1,000mg/100ml Vial IV 09/08/24 19:47 1,000 mg ONCE ONE Administration Hydrocodone Bitart/Acetaminophen 1 tab 09/08/24 22:02 09/08/24 22:07 Hydrocodone/Apap 5/325 Mg Tablet PO 09/08/24 22:03 1 tab ONCE ONE Administration Albuterol/Ipratropium 9 ml 09/08/24 19:30 09/08/24 21:08 Ipratropium/Albuterol 3 Ml Neb IH 09/08/24 19:31 9 ml ONCE ONE Administration Dexamethasone Sodium Phosphate 10 mg 09/08/24 19:30 09/08/24 21:02 Dexamethasone 4mg/Ml 1ml Vial IV 09/08/24 19:31 10 mg ONCE ONE Administration Magnesium Sulfate 2 gm in 50 mls @ 50 mls/hr 09/08/24 19:30 09/08/24 21:03 Magnesium Sulfate 2gm/50ml Premix IV 09/08/24 20:29 50 mls/hr ONCE ONE Administration Ceftriaxone Sodium 2 gm/ 100 mls @ 200 mls/hr 09/08/24 19:32 09/08/24 21:01 Sodium Chloride IV 09/08/24 20:01 200 mls/hr ONCE ONE Administration Azithromycin 500 mg/ Sodium 250 mls @ 250 mls/hr 09/08/24 19:32 09/08/24 21:02 Chloride IV 09/08/24 19:33 250 mls/hr ONCE ONE Administration ORDERS Category Date Time Status POCUS Point of Care (ER Only) Stat Exams 09/08/24 20:34 Completed XR chest portable Stat Exams 09/08/24 19:32 Completed CBC w/Auto Diff [Complete Blood Count Auto Diff] Stat Lab 09/08/24 19:21 Completed CMP [Comprehensive Metabolic Panel] Stat Lab 09/08/24 19:21 Completed Lactic Acid Stat Lab 09/08/24 19:21 Completed NT Pro Brain Natriuretic Pep. Stat Lab 09/08/24 19:21 Completed Blood Culture Stat Micro 09/08/24 19:21 Received VBG [Venous Blood Gas] Stat RT 09/08/24 19:39 Completed MDM Narrative Medical Decision Narrative: 84-year-old female history of hypertension, hyperlipidemia, diabetes, COPD on 2 L nasal cannula, ESRD on Friday dialysis presenting with shortness of breath and productive cough and fevers. Getting worse for about a week. States that cough is normally dry, now productive of green and yellow sputum. Fevers today. Patient also had oxygen desaturation to the 70s. Family was there, able to increase her nasal cannula to 4 L/min, brought her up into the high 80s. Patient was then brought here by family vehicle. Patient states that she is feeling weak, short of breath. Last time she got dialysis was today and finished entire session. Never has had blood infection or any complications from dialysis. No vomiting, diarrhea, abdominal pain, chest pain, nausea or vomiting, etc. History was obtained via conversation with patient and family. On arrival, patient hemodynamically stable, alert, oriented x4, appropriate, GCS 15, moving all extremities spontaneously, pupils equal and reactive to light. Full physical exam performed and significant for acutely ill appearing patient who is in moderate respiratory distress. Speaking 1-2 word sentences. Inspiratory and expiratory wheezes, rales on the right anterior lung quinn. No lower extremity edema. Abdomen is soft, nontender, nondistended. Tachypneic, tachycardic, febrile. Differential includes pneumonia, sepsis, COPD exacerbation, hypoxemic versus hypercapnic respiratory failure, ACS, NH, pneumothorax, metabolic abnormality, among others. Patient was given submental oxygen, Solu-Medrol, DuoNebs, magnesium, IV ceftriaxone and azithromycin for symptomatic management and correction of underlying abnormalities. Patient placed on continuous cardiac monitoring and continuous pulse ox with initial blood pressure 157/65, heart rate 109, saturation 94% on 4 L nasal cannula. Independent interpretation of EKG shows sinus tachycardia 106 bpm with PA interval 150 ms, QRS 88, QTc 388. Workup independently interpreted and significant for nonactionable CBC with stable hemoglobin. Multiple ultrasound-guided IVs needed to be placed and seem to keep infiltrating after initially working. Patient's VBG with respiratory alkalosis 7.56/normal CO2 at 37/bicarb a little high at 32.2 and lactate negative at 1.6. Chemistry with creatinine 2.4/BUN 18. Potassium normal at 3.4. BNP undetectably high. Chest x-ray was independently interpreted and patient has what appears to be atypical pneumonia versus bilateral lobar pneumonia with superimposed pulmonary edema small bilateral pleural effusions. See radiology read for full review of final results. Fluids were held given acutely volume overloaded state and chest x-ray. Reevaluation, patient looks and sounds remarkably better after meds. Ultrasound IV failed again, another 1 was placed making this 3. Spoke to [facility], rn clinical as well as hospitalist, graciously excepted transfer for pneumonia, sepsis, fluid overloaded state, hypoxemic respiratory failure, renal failure, and heart failure. [employer] disclaimer Much of this encounter note is an electronic community resource consultant spoken language to printed text. Electronic community resource consultant of the spoken language may permit errors. Although I have reviewed the note, some errors may still exist.
[2024-09-08 19:45] LABS: VBG PH 7.56 mmol/L (7.31-7.41)
[2024-09-08 19:47] LABS: Albumin Level 3.4 g/dl (3.5-5.0); Chloride 92 mmol/L (98-107); Potassium 3.4 mmoL/L (3.5-5.1); Sodium 138 mmol/L (136-145)
[2024-09-08 19:49] LABS: Blood Urea Nitrogen 18 mg/dl (7-17); Creatinine Clearance Estimated 16 mL/min (50-200); Estimated Glomerular Filt Rate 19 ml/min (>60); GFR (African American) 23 ML/MIN (>60); Lactic Acid 1.2 mmol/L (0.7-2.1)
[2024-09-08 19:50] LABS: Alanine Aminotransferase 15 U/L (12-78); Albumin/Globulin Ratio 1.4 (1.1-1.8); Alkaline Phosphatase 120 U/L (38-126); Anion Gap 14.4 mEq/L (5-15); Aspartate Amino Transferase 24 U/L (14-36); Bilirubin,Total 0.9 mg/dl (0.2-1.3); Calcium 8.8 mg/dl (8.4-10.2); Carbon Dioxide 35 mmol/L (22.0-30.0); Globulin 2.5 g/dL (1.3-3.2); Glucose 127 mg/dl (74-100); Total Protein,Serum 5.9 g/dl (6.3-8.2)
--- NOTE | 2024-09-08 20:16 | PC.NURSE ---
all labs obtained but unable to obtain IV access. MD Sandy made aware and states he is going to insert an USGIV
[2024-09-08 20:52] LABS: NT Pro Brain Natriuretic Pep. > 41600 pg/mL (0-450)
--- NOTE | 2024-09-08 21:00 | PC.NURSE ---
USG IV inserted by MD Sandy at this time.
[2024-09-08] MEDS: ACETAMINOPHEN 1,000MG/100ML VIAL 1000 MG IV (21:01)
[2024-09-08] MEDS: CEFTRIAXONE SODIUM 2 GM in 0.9 % SODIUM CHLORIDE 100 ML IV (21:01)
[2024-09-08] MEDS: AZITHROMYCIN 500 MG in 0.9 % SODIUM CHLORIDE 250 ML 250 MG IV (21:02)
[2024-09-08] MEDS: DEXAMETHASONE 4MG/ML 1ML VIAL 10 MG IV (21:02)
[2024-09-08] MEDS: MAGNESIUM SULFATE IN WATER 2 GM/50 ML PIGGYBACK IV (21:03)
[2024-09-08] MEDS: IPRATROPIUM/ALBUTEROL 3 ML NEB 9 ML IH (21:08)
--- NOTE | 2024-09-08 21:11 | PC.NURSE ---
Spoke with [facility], awaiting a call back at this time.
--- NOTE | 2024-09-08 21:56 | PC.NURSE ---
speaking with transfer physician at this time.
[2024-09-08] MEDS: HYDROCODONE/APAP 5/325 MG TABLET 1 TAB PO (22:07)
--- NOTE | 2024-09-08 23:19 | PC.NURSE ---
called [facility] for transfer to [facility] at this time
[2024-09-09 00:08] VITALS: BP 137/59; PULSE 98; RESP 16; TEMP 38.6; O2SAT 94
== END 2024-09-09 00:09 | disposition short-term general hospital (02) ==
PROVIDERS: Emergency Provider Emergency Medicine; PCP Family Medicine
DX: I50.9 Heart failure, unspecified (principal); J96.21 Acute and chronic respiratory failure with hypoxia; J18.9 Pneumonia, unspecified organism; R05.9 Cough, unspecified; R50.9 Fever, unspecified; R53.1 Weakness
CPT/HCPCS: 71045; 80053; 82803; 83605; 83880; 85025; 87040; 93005; 96361; 96365; 96367; 96368; 96374; 96375; 99291; 99292; J0131; J0456; J0696; J1100; J3475; J7050; J7620

== ENCOUNTER 2024-09-16 10:02 | Outpatient (CLI) | payer MEDICARE, OTHER, SELFPAY ==
--- NOTE | 2024-09-16 10:06 | XR_ITS ---
FINAL REPORT CLINICAL HISTORY: Left Wrist Fx COMPARISON: 09/02/2024 FINDINGS: LEFT WRIST Three views demonstrate the impacted transverse fracture of the distal radial metaphysis. The lateral displaced radial styloid fracture remains present. There is 4 mm of ulnar negative variance. The visualized joint spaces are normally aligned. 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 The soft tissues are unremarkable. IMPRESSION: Impacted transverse fracture of the distal radial metaphysis, with a mildly displaced radial styloid fracture, stable. Reviewed, Interpreted and Dictated by Aiden Lira MD Transcribed by Susan Saeed Authenticated and . [facility]
== END 2024-09-16 23:59 | disposition home or self-care (01) ==
LOC: RAD 10:04
PROVIDERS: PCP Family Medicine; Visit Provider Physician Assistant Surgical
DX: M25.532 Pain in left wrist (principal); S62.102A Fracture of unspecified carpal bone, left wrist, initial encounter for closed fracture
CPT/HCPCS: 73110

== ENCOUNTER 2024-09-19 13:18 | Emergency (ER) | payer MEDICARE, OTHER, SELFPAY ==
[2024-09-19] VITALS (20 sets, daily range): BP systolic 172–239; BP diastolic 74–105; PULSE 71–95; RESP 18; TEMP 36.8–37; O2SAT 92–98; BMI 22.8
--- NOTE | 2024-09-19 13:25 | ED_ITS ---
Discharge Plan Disposition Chief Complaint: Abdominal Pain Prescriptions Prescriptions: No Action albuterol sulfate 2.5 mg /3 mL (0.083 %) solution for nebulization 2.5 mg inhalation QID PRN (Reason: shortness of breath or wheezing) 90 Days Qty: 90 1RF ascorbic acid (vitamin C) 500 mg capsule 1,000 mg PO DAILY 90 Days Qty: 180 0RF calcium acetate 667 mg tablet 667 mg PO TID 90 Days Qty: 270 0RF (DME) True Metrix Glucose Test Strip Strip See Rx Instructions .ROUTE .MEDSUPPLY Qty: 100 2RF Rx Instructions: As directed pantoprazole 40 mg tablet,delayed release (DR/EC) 40 mg PO DAILY 90 Days Qty: 90 0RF levothyroxine [Synthroid] 88 mcg tablet 88 mcg PO DAILY 90 Days Qty: 90 0RF citalopram [Celexa] 20 mg tablet 20 mg PO DAILY 90 Days Qty: 90 0RF pregabalin 75 mg capsule 75 mg PO DAILY Qty: 30 3RF hydrocodone-acetaminophen 5-325 mg tablet 1 - 2 tab PO HS Qty: 60 0RF Instructions Patient Instructions: DI for Acute Abdominal Pain Print Language Print Language: Luxembourgish Discharge ED Provider: Clint Sandy General Adult HPI General Chief complaint: Abdominal Pain Stated complaint: Abdominal Pain at Colostomy Site Time Seen by Provider: 09/19/24 13:25 Mode of Arrival: Wheelchair Source of Information: Relative Limitations: No Limitations Description of Symptoms (Recalled from ER Triage Doc. by RN): Patient presents with abdominal pain. Patient has recently been admitted to [facility] for rehabilitation after sustaining a wrist fracture and a diagnosis of pneumonia. Patient endorses taking [place]. States it's as needed, but takes one at night. Endorses decreased stool outputs from colostomy. Endorses pain around her colostmy site. Patient endorses no abnormalities to the stoma. Denies blood in stool. Patient states she does not urinate due to renal failure and is on dialysis MWF. History of Present Illness HPI narrative: Patient is a 84-year-old female presents to the ED with complaints of intermittent abdominal cramping, decreased stool output in ostomy. Patient states she has a history of SBO in the past and feels that she has a blockage around her colostomy site Related Data Previous Rx's ?Medication ?Instructions ?Recorded albuterol sulfate 2.5 mg/3 mL 2.5 mg (3 mL) inhalation QID PRN 03/23/24 (0.083 %) solution for nebulization shortness of breath or wheezing 90 days #90 mL ascorbic acid (vitamin C) 500 mg 1,000 mg (2 x 500 mg) PO DAILY 90 03/30/24 capsule days #180 caps blood sugar diagnostic (True #100 ea 03/30/24 Metrix Glucose Test Strip) calcium acetate 667 mg tablet 667 mg PO TID 90 days #270 tabs 03/30/24 citalopram 20 mg tablet (Celexa) 20 mg PO DAILY 90 days #90 tabs 06/22/24 levothyroxine 88 mcg tablet 88 mcg PO DAILY 90 days #90 tabs 06/22/24 (Synthroid) pantoprazole 40 mg tablet,delayed 40 mg PO DAILY 90 days #90 tabs 06/22/24 release pregabalin 75 mg capsule 75 mg PO DAILY #30 caps 07/27/24 hydrocodone 5 mg-acetaminophen 325 1 - 2 tab PO HS pain #60 tabs 07/28/24 mg tablet Allergies Allergy/AdvReac Type Severity Reaction Status Date / Time tramadol (TRAMADOL) Allergy Mild Other Verified 09/19/24 13:01 bisoprolol Allergy Unknown Verified 09/19/24 13:01 allergy reaction lisinopril Allergy Unknown Verified 09/19/24 13:01 allergy reaction vancomycin AdvReac Unknown Verified 09/19/24 13:01 allergy reaction PFSH PFSH Disclaimer: The information contained in this section may have been updated after the patient was seen, as this information can be updated by other users. Medical History (Updated 09/16/24 @ 15:05 by Doroteo Bonilla MD) Second hand smoke exposure Family history of asthma Allergic rhinitis Chronic respiratory failure with hypoxia Dyspnea on exertion COPD exacerbation Heart murmur Diabetic foot ulcer Complete small bowel obstruction End-stage renal disease on hemodialysis Diabetes mellitus, type 2 Dialysis patient Chronic kidney disease Hypothyroid Hemodialysis patient Vitamin D deficiency Surgical History History of cholecystectomy History of hysterectomy History of hip replacement Family History Mother Cancer Coronary artery disease Heart attack Diabetes Father Cancer Sister Cancer Social History Smoking Status: Never smoker alcohol intake: never substance use type: denies use current occupational status: retired Travel in the last 8 weeks: None household members: none Have you lived/traveled outside US in past 30 days?: No Contact w/someone who lives/traveled outside US past 30 days?: No Exposure to someone with infectious disease in past 14 days?: No Do you have a fever (greater than 100.4 F or 38 C)?: No Have you tested positive for COVID-19: No Exposed to someone with COVID-19 in past 14 days?: No Do you have a sore throat?: No Do you have a cough?: No Do you have any weakness?: No Do you have any diarrhea?: No Are you experiencing any unusual bleeding?: No Do you have any muscle aches/pain?: No Do you have any abdominal pain?: No Are you experiencing loss of taste or smell?: No Other Medical History Have you received the Pneumonia Vaccine: Yes ROS Obtained: Yes Systems reviewed as appropriate & no additional complaints except as documented Physical Exam General General appearance: alert and in no apparent distress Head Head exam: atraumatic and normocephalic Eye Eye exam: Present normal appearance and PERRL ENT ENT exam: Present normal exam Neck Neck exam: Present normal inspection Chest Chest inspection: Present normal inspection and symmetric chest wall rise; Absent tenderness Respiratory Respiratory exam: Present normal lung sounds bilaterally Cardiovascular Cardiovascular exam: Present regular rate Abdominal Exam Abdominal exam: Present soft, tenderness (At colostomy site, colostomy site appears WNL) and normal bowel sounds Extremities Exam Extremities exam: Present normal inspection and full ROM Back Exam Back exam: Present normal inspection and full ROM Neurological Exam Neurological exam: Present alert and oriented X3 Psychiatric Psychiatric exam: Present normal affect and normal mood Skin Skin exam: Present warm and dry Medical Decision Making Medical Records Screening: Per USPSTF and CDC recommendations, given the prevalence of disease in our region, it is our hospital?s policy to screen for HIV and viral Hepatitis for all patients aged 18 and over and those with ongoing risk factors. Shakir Inquiry Pt receiving controlled substance: No Vital Signs: 09/19/24 13:18 09/19/24 13:37 09/19/24 14:32 Temperature 98.2 F Temperature Source Oral Pulse Rate 77 71 Pulse Rate [Radial] 83 Respiratory Rate 18 Blood Pressure 191/78 H 226/105 H Blood Pressure [Right Arm] 214/84 H Blood Pressure Mean [Right Arm] 127 Blood Pressure Source [Right Arm] Automatic Cuff Blood Pressure Position [Right Arm] Sitting 02 Sat by Pulse Oximetry 92 L 98 96 Oxygen Delivery Method Nasal Cannula Oxygen Flow Rate (LPM) 2 09/19/24 15:00 09/19/24 15:15 09/19/24 15:30 Temperature Temperature Source Pulse Rate 79 75 75 Pulse Rate [Radial] Respiratory Rate Blood Pressure 239/104 H 203/86 H 194/82 H Blood Pressure [Right Arm] Blood Pressure Mean [Right Arm] Blood Pressure Source [Right Arm] Blood Pressure Position [Right Arm] 02 Sat by Pulse Oximetry 97 98 97 Oxygen Delivery Method Nasal Cannula Nasal Cannula Nasal Cannula Oxygen Flow Rate (LPM) 2 2 2 09/19/24 16:00 09/19/24 16:30 09/19/24 17:00 Temperature Temperature Source Pulse Rate 75 82 86 Pulse Rate [Radial] Respiratory Rate Blood Pressure 199/81 H 190/85 H 194/78 H Blood Pressure [Right Arm] Blood Pressure Mean [Right Arm] Blood Pressure Source [Right Arm] Blood Pressure Position [Right Arm] 02 Sat by Pulse Oximetry 97 97 96 Oxygen Delivery Method Nasal Cannula Room Air Nasal Cannula Oxygen Flow Rate (LPM) 2 2 09/19/24 18:00 09/19/24 18:30 09/19/24 18:45 Temperature Temperature Source Pulse Rate 86 78 75 Pulse Rate [Radial] Respiratory Rate Blood Pressure 200/84 H 193/74 H 186/80 H Blood Pressure [Right Arm] Blood Pressure Mean [Right Arm] Blood Pressure Source [Right Arm] Blood Pressure Position [Right Arm] 02 Sat by Pulse Oximetry 98 98 97 Oxygen Delivery Method Nasal Cannula Nasal Cannula Nasal Cannula Oxygen Flow Rate (LPM) 2 2 2 09/19/24 19:00 09/19/24 19:15 09/19/24 19:30 Temperature Temperature Source Pulse Rate 79 78 82 Pulse Rate [Radial] Respiratory Rate Blood Pressure 186/78 H 188/77 H Blood Pressure [Right Arm] Blood Pressure Mean [Right Arm] Blood Pressure Source [Right Arm] Blood Pressure Position [Right Arm] 02 Sat by Pulse Oximetry 96 95 98 Oxygen Delivery Method Oxygen Flow Rate (LPM) 09/19/24 19:45 09/19/24 20:00 09/19/24 20:15 Temperature Temperature Source Pulse Rate 89 95 H 88 Pulse Rate [Radial] Respiratory Rate Blood Pressure 191/82 H Blood Pressure [Right Arm] Blood Pressure Mean [Right Arm] Blood Pressure Source [Right Arm] Blood Pressure Position [Right Arm] 02 Sat by Pulse Oximetry 94 L 92 L 93 L Oxygen Delivery Method Oxygen Flow Rate (LPM) 09/19/24 20:30 Temperature Temperature Source Pulse Rate 87 Pulse Rate [Radial] Respiratory Rate Blood Pressure 172/75 H Blood Pressure [Right Arm] Blood Pressure Mean [Right Arm] Blood Pressure Source [Right Arm] Blood Pressure Position [Right Arm] 02 Sat by Pulse Oximetry 97 Oxygen Delivery Method Oxygen Flow Rate (LPM) Lab Data Lab Results 09/19/24 14:00: WBC 14.7 H, RBC 3.07 L, Hgb 10.3 L, Hct 32.1 L, MCV 104.6 H, MCH 33.6 H, MCHC 32.1, RDW 16.3, Plt Count 133 L, MPV 10.9 H, Neut % (Auto) 92.0 H, Lymph % (Auto) 2.9 L, [place] % (Auto) 3.6, Eos % (Auto) 0.1, Baso % (Auto) 0.1, N eut # (Auto) 13.5 H, Lymph # (Auto) 0.4 L, [place] # (Auto) 0.5, Eos # (Auto) 0.0, Baso # (Auto) 0.0, Total Counted 100, Neutrophils % (Manual) 88 H, Lymphocytes % (Manual) 10, Monocytes % (Manual) 2, Platelet Estimate Normal, Macrocytosis 1+, Sodium 137, Potassium 4.7, Chloride 94 L, Carbon Dioxide 31 H, Anion Gap 16.7 H, BUN 54 H, Creatinine 5.00 H, Estimated Creat Clear 8, Estimated GFR 8 L*, Est GFR ( Amer) 10 L*, Glucose 215 H, Calcium 8.1 L, Total Bilirubin 1.2, AST 23, ALT 18, Alkaline Phosphatase 100, Troponin I 0.04 H, NT-Pro-B Natriuret Pep 84005 H, Total Protein 5.7 L, Albumin 3.9, Globulin 1.8, Albumin/Globulin Ratio 2.2 H, Lipase 437 H, HCV Ab JAY w/Rflx PCR Qn Negative, HIV Ag/Ab Combo Qual Negative 09/19/24 14:08: VBG pH 7.34, VBG pCO2 56.1 H, VBG pO2 166.4 H, VBG HCO3 29.8, V BG Total CO2 31.5 H, VBG O2 Saturation 99.2 H, VBG Base Excess 4.1 H, VBG Lactic Acid 1.8 09/19/24 16:00: SARS-CoV-2 (PCR) Not detected, Influenza A Untype (PCR) Not detected, Influenza Type B (PCR) Not detected 09/19/24 20:01: Lactate 1.7 09/19/24 14:00 09/19/24 14:00 Orders (Tests/Meds): ED MEDICATIONS Discontinued Medications Generic Name Dose Route Start Last Admin Trade Name Freq PRN Reason Stop Dose Admin Belladonna Alkaloids 60 ml 09/19/24 16:06 09/19/24 16:15 Belladonna Alkaloids 60 Ml Ml PO 09/19/24 16:07 60 ml ONCE ONE Administration Dicyclomine HCl 20 mg 09/19/24 13:31 09/19/24 13:57 Dicyclomine 10mg Capsule PO 09/19/24 13:32 20 mg ONCE ONE Administration Ondansetron HCl 4 mg 09/19/24 13:31 09/19/24 13:58 Ondansetron 4mg/2ml Vial IV 09/19/24 13:32 4 mg ONCE ONE Administration ORDERS Category Date Time Status CT abdomen pelvis wo con Stat Cat Scan 09/19/24 17:15 Completed CXR --portable [XR chest portable] Stat Exams 09/19/24 13:31 Completed CXR --portable [XR chest portable] Stat Exams 09/19/24 19:47 Completed BNP [NT Pro Brain Natriuretic Pep.] Stat Lab 09/19/24 14:00 Completed CBC w/Auto Diff [Complete Blood Count Auto Diff] Stat Lab 09/19/24 14:00 Completed CMP [Comprehensive Metabolic Panel] Stat Lab 09/19/24 14:00 Completed HIV Combo Stat Lab 09/19/24 14:00 Completed Hepatitis C Ab Qual. W/ RFX Stat Lab 09/19/24 14:00 Completed Lactic Acid Stat Lab 02/02/25 20:01 Completed Lipase Stat Lab 09/19/24 14:00 Completed Rapid PCR Covid and Flu A/B Stat Lab 09/19/24 16:00 Completed Trop I [Troponin I] Stat Lab 09/19/24 14:00 Completed Troponin I Q3H Lab 09/19/24 16:45 Ordered Troponin I Q3H Lab 09/19/24 19:45 Ordered VBG [Venous Blood Gas] Stat RT 09/19/24 14:08 Completed Medical Decision Narrative: In summary, patient is a 84-year-old [facility] of abdominal pain, shortness of breath x 3 to 4 days. PMHx kidney failure (dialysis MWF), colostomy (8 years), chronic respiratory failure, CHF, COPD, history of abnormal EKG, history of SBO, diabetes. Patient is hemodynamically stable and afebrile upon arrival. Upon initial exam, patient is alert, oriented and cooperative. Abdomen is nontender. Colostomy site appears normal and has stool in the bag. Differential diagnosis includes ACS, dissection, pneumonia, pneumothorax, CHF exacerbation, COPD exacerbation, SBO Initial workup conducted and reviewed by me. CBC remarkable for WBC 14.7, hemoglobin 10.3, hematocrit 32.1 with neutrophils 92. VBG normal pH 7.34, CO2 56.1. CMP remarkable for CO2 31, anion gap 16.7, BUN 54, creatinine 5. Initial troponin 0.04, BNP 60,100, lipase 437. Imaging reviewed, chest x-ray final read volume loss in the right hemothorax, streaky airspace opacities in the lower lobes could be attributed to a developing pneumonia versus aspiration. Patient was recently treated for pneumonia so this is most likely resolving. Initial inventions include Zofran, Bentyl and GI cocktail. Reassessment after medications, abdominal pain only mildly improved. Will proceed with CT of the abdomen pelvis without contrast at this time. CT of the abdomen pelvis remarkable for SBO. Final read reports acute high- grade small bowel obstruction with a transition point suggested in the right lower quadrant. Adhesion is probable culprit. Patchy consolidations in the bilateral lung bases, worse on the right. No evidence of bowel perforation at this time. Mild volume overload third spacing presumably from chronic kidney disease. I had an interactive discussion with general surgery at [facility] who states patient needs transfer to a higher level of care. I spoke to transfer center, they are currently on divert but offered to talk to surgery. However patient refusing to be transferred to for personal reasons. I spoke to surgery at [facility], accepted by surgeon but needs excepted by hospitalist. NG tube placed and confirmed by attending with chest x-ray. I spoke to hospitalist and surgeon at [facility], I spoke to Chantal Nguyen APRN and accepting MD is Dr. Saldivar and spoke to Dr. Gill, surgeon. Pt to be transferred with ACLS ground transfer Upon reassessment, patient became increasingly dyspneic. Care transferred to attending Dr. Brewer at this time 2100. Critical Care Critical Care Time Critical Care Time: No
--- NOTE | 2024-09-19 13:31 | XR_ITS ---
PROCEDURE INFORMATION: Exam: XR Chest Exam date and time: 09/19/2024 1:44 PM Age: 84 years old Clinical indication: Shortness of breath; SOA, PT stated no surgeries TECHNIQUE: Imaging protocol: Radiologic exam of the chest. Views: 1 view. COMPARISON: CR XR CHEST PORTABLE 09/08/2024 7:37 PM FINDINGS: Lungs: There is poor ventilation of the lungs, with perihilar vascular crowding and a diffuse increase in pulmonary parenchymal density. There is volume loss in the right hemithorax.Streaky airspace opacities in lower lobes could be attributed to atelectasis versus developing pneumonia/aspiration in the appropriate clinical context. Pleural spaces: Unremarkable. No pleural effusion. No pneumothorax. Heart/Mediastinum: Unremarkable. No cardiomegaly. Bones/joints: Unremarkable. IMPRESSION: There is volume loss in the right hemithorax. Streaky airspace opacities in lower lobes could be attributed to atelectasis versus developing pneumonia/aspiration in the appropriate clinical context.
[2024-09-19] MEDS: DICYCLOMINE 10MG CAPSULE 20 MG PO (13:57)
[2024-09-19] MEDS: ONDANSETRON 4MG/2ML VIAL 4 MG IV (13:58)
[2024-09-19 14:07] LABS: Basophils % 0.1 % (0.1-2.0); Eosinophils % 0.1 % (0.1-12.0); Hematocrit 32.1 % (37.0-47.0); Hemoglobin 10.3 g/dL (12.2-16.2); Lymphocytes # 0.4 K/mm3 (0.7-4.5); Lymphocytes % 2.9 % (10-50); Mean Corpuscular HGB Conc 32.1 g/dL (31.8-35.4); Mean Corpuscular Hemoglobin 33.6 pg (27.0-31.2); Mean Corpuscular Volume 104.6 fl (81-99); Mean Platelet Volume 10.9 fl (7.4-10.4); Monocytes # 0.5 K/mm3 (0.1-1.0); Monocytes % 3.6 % (1.7-9.3); Neutrophils # 13.5 K/mm3 (1.8-7.8); Platelet Count 133 K/mm3 (142-424); Red Blood Count 3.07 M/mm3 (4.20-5.40); Red Cell Distribution Width 16.3 % (11.5-17.5); White Blood Count 14.7 K/mm3 (4.8-10.8)
[2024-09-19 14:08] LABS: MANUAL DIFFERENTIAL MANUAL DIFFERENTIAL (MANUAL DIFF)
[2024-09-19 14:12] LABS: Albumin Level 3.9 g/dl (3.5-5.0); Chloride 94 mmol/L (98-107); Potassium 4.7 mmoL/L (3.5-5.1); Sodium 137 mmol/L (136-145)
[2024-09-19 14:14] LABS: Alanine Aminotransferase 18 U/L (12-78); Anion Gap 16.7 mEq/L (5-15); Aspartate Amino Transferase 23 U/L (14-36); Blood Urea Nitrogen 54 mg/dl (7-17); Carbon Dioxide 31 mmol/L (22.0-30.0); Creatinine Clearance Estimated 8 mL/min (50-200); Estimated Glomerular Filt Rate 8 ml/min (>60); GFR (African American) 10 ML/MIN (>60)
[2024-09-19 14:15] LABS: Albumin/Globulin Ratio 2.2 (1.1-1.8); Alkaline Phosphatase 100 U/L (38-126); Bilirubin,Total 1.2 mg/dl (0.2-1.3); Calcium 8.1 mg/dl (8.4-10.2); Globulin 1.8 g/dL (1.3-3.2); Glucose 215 mg/dl (74-100); Lipase 437 U/L (23-300); Total Protein,Serum 5.7 g/dl (6.3-8.2)
[2024-09-19 14:21] LABS: Lactate Venous 1.8 mmol/L (0.4-2.0); VBG Base Excess 4.1 mmol/L (-2.4-2.3); VBG HCO3 29.8 mmol/L (23-30); VBG Oxygen Saturation 99.2 % (50-70); VBG PH 7.34 mmol/L (7.31-7.41); VBG PO2 166.4 mmol/L (28-40); VBG Total CO2 31.5 mmol/L (23-27)
[2024-09-19 14:25] LABS: VBG PCO2 56.1 mmol/L (35-51)
[2024-09-19 14:27] LABS: Troponin I 0.04 ng/ml (0.00-0.034)
[2024-09-19 14:35] LABS: Lymphocytes % 10 % (10-50); Macrocytosis 1+; Monocytes % 2 % (2-9); Neutrophils % 88 % (42-76); Platelet Estimate Normal; Total Cells Counted 100
[2024-09-19 15:07] LABS: NT Pro Brain Natriuretic Pep. 60100 pg/mL (0-450)
--- NOTE | 2024-09-19 15:07 | PC.NURSE ---
PT reports that she is nauseated, aware
[2024-09-19 16:15] LABS: Coronavirus 19, PCR Not Detected (NotDetected); Influenza A, PCR Not Detected (NotDetected); Influenza B, PCR Not Detected (NotDetected)
[2024-09-19] MEDS: BELLADONNA ALKALOIDS 60 ML ML PO (16:15)
[2024-09-19 16:17] LABS: HIV Combo NEGATIVE (Negative)
[2024-09-19 16:26] LABS: Hepatitis C Ab Qual. W/ RFX NEGATIVE (Negative)
--- NOTE | 2024-09-19 16:45 | PC.NURSE ---
speaking with lab regarding swab
--- NOTE | 2024-09-19 17:15 | CT_ITS ---
PROCEDURE INFORMATION: Exam: CT Abdomen And Pelvis Without Contrast Exam date and time: 09/19/2024 5:32 PM Age: 84 years old Clinical indication: Abdominal pain; Additional info: Abd pain TECHNIQUE: Imaging protocol: Computed tomography of the abdomen and pelvis without contrast. Radiation optimization: All CT scans at this facility use at least one of these dose optimization techniques: automated exposure control; mA and/or kV adjustment per patient size (includes targeted exams where dose is matched to clinical indication); or iterative reconstruction. COMPARISON: CT ABDOMEN PELVIS WO CON 05/10/2022 9:16 AM FINDINGS: Limitations: Streak artifact partially limits the sensitivity of this study, especially at the pelvis. Lungs: Patchy consolidations in the bilateral lung bases, worse on the right. Calcified granuloma in the right lower lobe is benign. Pleural spaces: Partially seen moderate bilateral pleural effusions. Liver: Scattered calcified liver granulomas are benign. Slightly nodular liver contour, concerning for early hepatocellular disease. Correlation with pertinent labs is recommended. Gallbladder and biliary ducts: Cholecystectomy. Stable severe dilation of the CBD, measuring up to 1.8 cm. No radiopaque obstructing stones. Pancreas: Normal. No ductal dilation. Spleen: The spleen demonstrates punctate calcifications, consistent with remote granulomatous organism exposure. Adrenal glands: Normal. No mass. Kidneys and ureters: Stable chronic atrophy of the bilateral [place] kidneys with some punctate nonobstructive stones. Stomach and bowel: Stable 3.8 cm diverticulum at the 2nd duodenal segment. Prior rectal and sigmoid resection with left lower quadrant colostomy. No complications. Multiple dilated loops of small bowel (measuring up to 5 cm) in the left lower quadrant and pelvis with fecalization, mild wall thickening, and adjacent engorgement of the vasa recta. The transition point is difficult to assess, however appears to be in the right lower quadrant/right pelvis where there are multiple collapsed small bowel loops. Appendix: No evidence of appendicitis. Intraperitoneal space: Trace ascites. No intraperitoneal fluid collections. Vasculature: Irya-[id number]-[id number] atherosclerosis. Lymph nodes: Unremarkable. No enlarged lymph nodes. Urinary bladder: Bladder is obscured by streak artifact. Reproductive: Reproductive organs are obscured by streak artifact. Bones/joints: Complete bilateral hip arthroplasties without complications. Bone demineralization. Severe multilevel degenerative changes of the spine. Soft tissues: Mild body wall edema. Other findings: No aneurysm. IMPRESSION: 1. Acute high-grade small bowel obstruction with transition point suggested in the right lower quadrant/right pelvis. A adhesion is a probable culprit. 2. Patchy consolidations in the bilateral lung bases, worse on the right. Likely a combination of atelectasis and possibly superimposed pneumonia. 3. No evidence of bowel perforation at this time. 4. Mild volume overload/interstitial third-spacing. Presumably from chronic kidney disease. COMMENTS: THIS REPORT CONTAINS FINDINGS THAT MAY BE CRITICAL TO PATIENT CARE. The findings were verbally communicated via telephone conference with Alpa Flores at 7:05 PM EST on 09/19/2024. The findings were acknowledged and understood.
--- NOTE | 2024-09-19 17:29 | PC.NURSE ---
pt gone to ct at this time via wheelchair
--- NOTE | 2024-09-19 18:56 | PC.NURSE ---
Rad notified that the scans are being read at this time.
--- NOTE | 2024-09-19 19:03 | PC.NURSE ---
KELLY SPEAKING WITH [facility]
--- NOTE | 2024-09-19 19:26 | PC.NURSE ---
Spoke with transfer center. awaiting a call back at this time.
--- NOTE | 2024-09-19 19:33 | PC.NURSE ---
Pt requests [facility]. Discussed with provider. Will call [facility]
--- NOTE | 2024-09-19 19:43 | PC.NURSE ---
Called for a transfer per pt request. awaiting a call back at this time.
--- NOTE | 2024-09-19 19:45 | PC.NURSE ---
# 18 jeffreym shonda to [facility]. 300 ml of light brown drainage present.Patient tolerated fair.
--- NOTE | 2024-09-19 19:47 | XR_ITS ---
PROCEDURE INFORMATION: Exam: XR Chest Exam date and time: 09/19/2024 7:49 PM Age: 84 years old Clinical indication: Device placement; Ng tube; Additional info: Ng confirmation TECHNIQUE: Imaging protocol: Radiologic exam of the chest. Views: 1 view. COMPARISON: CR XR CHEST PORTABLE 09/19/2024 1:44 PM FINDINGS: Tubes, catheters and devices: Nasogastric tube tip in the stomach. Lungs: Stable ground-glass and interstitial opacities in the bilateral lung bases. Pleural spaces: Stable small bilateral pleural effusions, slightly larger on the right. Heart/Mediastinum: Stable moderate cardiomegaly. Bones/joints: Unremarkable. IMPRESSION: 1. Nasogastric tube tip in the stomach. 2. Stable small bilateral pleural effusions, slightly larger on the right. 3. Stable mild basal pulmonary edema or atelectasis.
--- NOTE | 2024-09-19 20:29 | PC.NURSE ---
Called [facility]. Alpa Flores NP speaking with them at this time
--- NOTE | 2024-09-19 20:30 | PC.NURSE ---
Patient and family updated
[2024-09-19 20:35] LABS: Lactic Acid 1.7 mmol/L (0.7-2.1)
--- NOTE | 2024-09-19 20:57 | PC.NURSE ---
Josephine from [facility] contacted this facility regarding a bed assignment patient was given Bed #[id number] report number has been given and fax sheet needs to be faxed.
[2024-09-19 21:15] LABS: Lactate Venous 1.5 mmol/L (0.4-2.0); VBG Base Excess 4.9 mmol/L (-2.4-2.3); VBG HCO3 28.9 mmol/L (23-30); VBG PCO2 42.5 mmol/L (35-51); VBG PH 7.45 mmol/L (7.31-7.41); VBG PO2 138.1 mmol/L (28-40); VBG Total CO2 30.2 mmol/L (23-27)
--- NOTE | 2024-09-19 21:17 | ECG_ITS ---
APPROVED REPORT Exam: Resting ECG HR:86 bpm ECG Measurements Heart Rate 86 AXES MO 129 P 52 QRSd 102 QRS 48 QT 360 T 81 QTc 404 Conclusion SINUS RHYTHM WITH OCCASIONAL SUPRAVENTRICULAR PREMATURE COMPLEXES MODERATE ST DEPRESSION [0.05+ mV ST DEPRESSION] ABNORMAL ECG UNCONFIRMED REPORT Electronically signed by : Rodrigo Brewer, 09/19/2024 23:17:50
--- NOTE | 2024-09-19 21:34 | PC.NURSE ---
Tried to call [facility] for report. No answer. Will call back.
--- NOTE | 2024-09-19 21:40 | ED_ITS ---
Discharge Plan Disposition Chief Complaint: Abdominal Pain Prescriptions Prescriptions: No Action albuterol sulfate 2.5 mg /3 mL (0.083 %) solution for nebulization 2.5 mg inhalation QID PRN (Reason: shortness of breath or wheezing) 90 Days Qty: 90 1RF ascorbic acid (vitamin C) 500 mg capsule 1,000 mg PO DAILY 90 Days Qty: 180 0RF calcium acetate 667 mg tablet 667 mg PO TID 90 Days Qty: 270 0RF (DME) True Metrix Glucose Test Strip Strip See Rx Instructions .ROUTE .MEDSUPPLY Qty: 100 2RF Rx Instructions: As directed pantoprazole 40 mg tablet,delayed release (DR/EC) 40 mg PO DAILY 90 Days Qty: 90 0RF levothyroxine [Synthroid] 88 mcg tablet 88 mcg PO DAILY 90 Days Qty: 90 0RF citalopram [Celexa] 20 mg tablet 20 mg PO DAILY 90 Days Qty: 90 0RF pregabalin 75 mg capsule 75 mg PO DAILY Qty: 30 3RF hydrocodone-acetaminophen 5-325 mg tablet 1 - 2 tab PO HS Qty: 60 0RF Stand Alone Forms Stand Alone Forms: Transfer Record - ED Instructions Patient Instructions: DI for Acute Abdominal Pain Print Language Print Language: Malay Discharge ED Provider: Rodrigo Brewer Adult HPI General Chief complaint: Abdominal Pain Stated complaint: Abdominal Pain at Colostomy Site Time Seen by Provider: 09/19/24 13:25 Mode of Arrival: Wheelchair Source of Information: Relative Limitations: No Limitations Description of Symptoms (Recalled from ER Triage Doc. by RN): Patient presents with abdominal pain. Patient has recently been admitted to [facility] for rehabilitation after sustaining a wrist fracture and a diagnosis of pneumonia. Patient endorses taking [place]. States it's as needed, but takes one at night. Endorses decreased stool outputs from colostomy. Endorses pain around her colostmy site. Patient endorses no abnormalities to the stoma. Denies blood in stool. Patient states she does not urinate due to renal failure and is on dialysis MWF. Related Data Previous Rx's ?Medication ?Instructions ?Recorded albuterol sulfate 2.5 mg/3 mL 2.5 mg (3 mL) inhalation QID PRN 03/23/24 (0.083 %) solution for nebulization shortness of breath or wheezing 90 days #90 mL ascorbic acid (vitamin C) 500 mg 1,000 mg (2 x 500 mg) PO DAILY 90 03/30/24 capsule days #180 caps blood sugar diagnostic (True #100 ea 03/30/24 Metrix Glucose Test Strip) calcium acetate 667 mg tablet 667 mg PO TID 90 days #270 tabs 03/30/24 citalopram 20 mg tablet (Celexa) 20 mg PO DAILY 90 days #90 tabs 06/22/24 levothyroxine 88 mcg tablet 88 mcg PO DAILY 90 days #90 tabs 06/22/24 (Synthroid) pantoprazole 40 mg tablet,delayed 40 mg PO DAILY 90 days #90 tabs 06/22/24 release pregabalin 75 mg capsule 75 mg PO DAILY #30 caps 07/27/24 hydrocodone 5 mg-acetaminophen 325 1 - 2 tab PO HS pain #60 tabs 07/28/24 mg tablet Allergies Allergy/AdvReac Type Severity Reaction Status Date / Time tramadol (TRAMADOL) Allergy Mild Other Verified 09/19/24 13:01 bisoprolol Allergy Unknown Verified 09/19/24 13:01 allergy reaction lisinopril Allergy Unknown Verified 09/19/24 13:01 allergy reaction vancomycin AdvReac Unknown Verified 09/19/24 13:01 allergy reaction PFSH PFS Disclaimer: The information contained in this section may have been updated after the patient was seen, as this information can be updated by other users. Medical History (Updated 09/16/24 @ 15:05 by Doroteo Bonilla MD) Second hand smoke exposure Family history of asthma Allergic rhinitis Chronic respiratory failure with hypoxia Dyspnea on exertion COPD exacerbation Heart murmur Diabetic foot ulcer Complete small bowel obstruction End-stage renal disease on hemodialysis Diabetes mellitus, type 2 Dialysis patient Chronic kidney disease Hypothyroid Hemodialysis patient Vitamin D deficiency Surgical History History of cholecystectomy History of hysterectomy History of hip replacement Family History Mother Cancer Coronary artery disease Heart attack Diabetes Father Cancer Sister Cancer Social History Smoking Status: Never smoker alcohol intake: never substance use type: denies use current occupational status: retired Travel in the last 8 weeks: None household members: none Have you lived/traveled outside [place] in past 30 days?: No Contact w/someone who lives/traveled outside [place] past 30 days?: No Exposure to someone with infectious disease in past 14 days?: No Do you have a fever (greater than 100.4 F or 38 C)?: No Have you tested positive for COVID-19: No Exposed to someone with COVID-19 in past 14 days?: No Do you have a sore throat?: No Do you have a cough?: No Do you have any weakness?: No Do you have any diarrhea?: No Are you experiencing any unusual bleeding?: No Do you have any muscle aches/pain?: No Do you have any abdominal pain?: No Are you experiencing loss of taste or smell?: No Other Medical History Have you received the Pneumonia Vaccine: Yes Physical Exam General General appearance: alert and in no apparent distress Medical Decision Making Medical Records Screening: Per USPSTF and CDC recommendations, given the prevalence of disease in our region, it is our hospital?s policy to screen for HIV and viral Hepatitis for all patients aged 18 and over and those with ongoing risk factors. [place] Inquiry Pt receiving controlled substance: No Vital Signs: 09/19/24 13:18 09/19/24 13:37 09/19/24 14:32 Temperature 98.2 F Temperature Source Oral Pulse Rate 77 71 Pulse Rate [Radial] 83 Respiratory Rate 18 Blood Pressure 191/78 H 226/105 H Blood Pressure [Right Arm] 214/84 H Blood Pressure Mean [Right Arm] 127 Blood Pressure Source [Right Arm] Automatic Cuff Blood Pressure Position [Right Arm] Sitting 02 Sat by Pulse Oximetry 92 L 98 96 Oxygen Delivery Method Nasal Cannula Oxygen Flow Rate (LPM) 2 09/19/24 15:00 09/19/24 15:15 09/19/24 15:30 Temperature Temperature Source Pulse Rate 79 75 75 Pulse Rate [Radial] Respiratory Rate Blood Pressure 239/104 H 203/86 H 194/82 H Blood Pressure [Right Arm] Blood Pressure Mean [Right Arm] Blood Pressure Source [Right Arm] Blood Pressure Position [Right Arm] 02 Sat by Pulse Oximetry 97 98 97 Oxygen Delivery Method Nasal Cannula Nasal Cannula Nasal Cannula Oxygen Flow Rate (LPM) 2 2 2 09/19/24 16:00 09/19/24 16:30 09/19/24 17:00 Temperature Temperature Source Pulse Rate 75 82 86 Pulse Rate [Radial] Respiratory Rate Blood Pressure 199/81 H 190/85 H 194/78 H Blood Pressure [Right Arm] Blood Pressure Mean [Right Arm] Blood Pressure Source [Right Arm] Blood Pressure Position [Right Arm] 02 Sat by Pulse Oximetry 97 97 96 Oxygen Delivery Method Nasal Cannula Room Air Nasal Cannula Oxygen Flow Rate (LPM) 2 2 09/19/24 18:00 09/19/24 18:30 09/19/24 18:45 Temperature Temperature Source Pulse Rate 86 78 75 Pulse Rate [Radial] Respiratory Rate Blood Pressure 200/84 H 193/74 H 186/80 H Blood Pressure [Right Arm] Blood Pressure Mean [Right Arm] Blood Pressure Source [Right Arm] Blood Pressure Position [Right Arm] 02 Sat by Pulse Oximetry 98 98 97 Oxygen Delivery Method Nasal Cannula Nasal Cannula Nasal Cannula Oxygen Flow Rate (LPM) 2 2 2 09/19/24 19:00 09/19/24 19:15 09/19/24 19:30 Temperature Temperature Source Pulse Rate 79 78 82 Pulse Rate [Radial] Respiratory Rate Blood Pressure 186/78 H 188/77 H Blood Pressure [Right Arm] Blood Pressure Mean [Right Arm] Blood Pressure Source [Right Arm] Blood Pressure Position [Right Arm] 02 Sat by Pulse Oximetry 96 95 98 Oxygen Delivery Method Oxygen Flow Rate (LPM) 09/19/24 19:45 09/19/24 20:00 09/19/24 20:15 Temperature Temperature Source Pulse Rate 89 95 H 88 Pulse Rate [Radial] Respiratory Rate Blood Pressure 191/82 H Blood Pressure [Right Arm] Blood Pressure Mean [Right Arm] Blood Pressure Source [Right Arm] Blood Pressure Position [Right Arm] 02 Sat by Pulse Oximetry 94 L 92 L 93 L Oxygen Delivery Method Oxygen Flow Rate (LPM) 09/19/24 20:30 Temperature Temperature Source Pulse Rate 87 Pulse Rate [Radial] Respiratory Rate Blood Pressure 172/75 H Blood Pressure [Right Arm] Blood Pressure Mean [Right Arm] Blood Pressure Source [Right Arm] Blood Pressure Position [Right Arm] 02 Sat by Pulse Oximetry 97 Oxygen Delivery Method Oxygen Flow Rate (LPM) Lab Data Lab Results 09/19/24 14:00: WBC 14.7 H, RBC 3.07 L, Hgb 10.3 L, Hct 32.1 L, MCV 104.6 H, MCH 33.6 H, MCHC 32.1, RDW 16.3, Plt Count 133 L, MPV 10.9 H, Neut % (Auto) 92.0 H, Lymph % (Auto) 2.9 L, Lucas % (Auto) 3.6, Eos % (Auto) 0.1, Baso % (Auto) 0.1, N eut # (Auto) 13.5 H, Lymph # (Auto) 0.4 L, Lucas # (Auto) 0.5, Eos # (Auto) 0.0, Baso # (Auto) 0.0, Total Counted 100, Neutrophils % (Manual) 88 H, Lymphocytes % (Manual) 10, Monocytes % (Manual) 2, Platelet Estimate Normal, Macrocytosis 1+, Sodium 137, Potassium 4.7, Chloride 94 L, Carbon Dioxide 31 H, Anion Gap 16.7 H, BUN 54 H, Creatinine 5.00 H, Estimated Creat Clear 8, Estimated GFR 8 L*, Est GFR ( Amer) 10 L*, Glucose 215 H, Calcium 8.1 L, Total Bilirubin 1.2, AST 23, ALT 18, Alkaline Phosphatase 100, Troponin I 0.04 H, NT-Pro-B Natriuret Pep 48612 H, Total Protein 5.7 L, Albumin 3.9, Globulin 1.8, Albumin/Globulin Ratio 2.2 H, Lipase 437 H, HCV Ab JAY w/Rflx PCR Qn Negative, HIV Ag/Ab Combo Qual Negative 09/19/24 14:08: VBG pH 7.34, VBG pCO2 56.1 H, VBG pO2 166.4 H, VBG HCO3 29.8, V BG Total CO2 31.5 H, VBG O2 Saturation 99.2 H, VBG Base Excess 4.1 H, VBG Lactic Acid 1.8 09/19/24 16:00: SARS-CoV-2 (PCR) Not detected, Influenza A Untype (PCR) Not detected, Influenza Type B (PCR) Not detected 09/19/24 20:01: Lactate 1.7 09/19/24 20:55: VBG pH 7.45 H, VBG pCO2 42.5, VBG pO2 138.1 H, VBG HCO3 28.9, V BG Total CO2 30.2 H, VBG O2 Saturation 99.0 H, VBG Base Excess 4.9 H, VBG Lactic Acid 1.5 09/19/24 14:00 09/19/24 14:00 Orders (Tests/Meds): ED MEDICATIONS Discontinued Medications Generic Name Dose Route Start Last Admin Trade Name Freq PRN Reason Stop Dose Admin Belladonna Alkaloids 60 ml 09/19/24 16:06 09/19/24 16:15 Belladonna Alkaloids 60 Ml Ml PO 09/19/24 16:07 60 ml ONCE ONE Administration Dicyclomine HCl 20 mg 09/19/24 13:31 09/19/24 13:57 Dicyclomine 10mg Capsule PO 09/19/24 13:32 20 mg ONCE ONE Administration Ondansetron HCl 4 mg 09/19/24 13:31 09/19/24 13:58 Ondansetron 4mg/2ml Vial IV 09/19/24 13:32 4 mg ONCE ONE Administration ORDERS Category Date Time Status CT abdomen pelvis wo con Stat Cat Scan 09/19/24 17:15 Completed CXR --portable [XR chest portable] Stat Exams 09/19/24 13:31 Completed CXR --portable [XR chest portable] Stat Exams 09/19/24 19:47 Completed BNP [NT Pro Brain Natriuretic Pep.] Stat Lab 09/19/24 14:00 Completed CBC w/Auto Diff [Complete Blood Count Auto Diff] Stat Lab 09/19/24 14:00 Completed CMP [Comprehensive Metabolic Panel] Stat Lab 09/19/24 14:00 Completed HIV Combo Stat Lab 09/19/24 14:00 Completed Hepatitis C Ab Qual. W/ RFX Stat Lab 09/19/24 14:00 Completed Lactic Acid Stat Lab 09/19/24 20:01 Completed Lipase Stat Lab 09/19/24 14:00 Completed Rapid PCR Covid and Flu A/B Stat Lab 09/19/24 16:00 Completed Trop I [Troponin I] Stat Lab 09/19/24 14:00 Completed Troponin I Q3H Lab 09/19/24 16:45 Ordered Troponin I Q3H Lab 09/19/24 19:45 Ordered VBG [Venous Blood Gas] Stat RT 09/19/24 14:08 Completed VBG [Venous Blood Gas] Stat RT 09/19/24 20:55 Completed EKG Request [ECG Request] Stat Y 09/19/24 20:57 Ordered ECG Data Tracing #2: I reviewed this ECG and interpreted as documented below: Normal sinus rhythm with no acute ischemic ST changes. Intervals within normal limits
== END 2024-09-19 22:07 | disposition short-term general hospital (02) ==
PROVIDERS: Emergency Medicine; Nurse Practitioner; Emergency Provider Emergency Medicine
DX: J96.01 Acute respiratory failure with hypoxia (principal); K56.609 Unspecified intestinal obstruction, unspecified as to partial versus complete obstruction; R10.9 Unspecified abdominal pain; N18.6 End stage renal disease; Z99.2 Dependence on renal dialysis
CPT/HCPCS: 71045; 74176; 80053; 82803; 83605; 83690; 83880; 84484; 85007; 85025; 85027; 86803; 87389; 87636; 93005; 96374; 99285; J2405